=== PATIENT | female | born 1955 | race Caucasian/White ===

== ENCOUNTER → 2018-03-04 | Outpatient (CLI) | payer OTHER ==
[~2018-03-04] MED LIST: ACT300 PO; CETI10TA84 PO; DESO0.259 TOP; DILT120C68 PO; ERGO500037 PO; ESTR0.3T PO; FLUO40CA8 PO; HYOS1TAB PO; LEVO150T PO; LIDO2SOL17 PO; LISI5TAB3 PO; MULT-506 PO; PHEN1ELX5 PO; PRLSR20 PO; RANI150T85 PO; ZOLP5TAB PO
--- NOTE | 2018-03-05 14:43 | MAMMOGRAPHY REPORT ---
BILATERAL DIGITAL SCREENING MAMMOGRAM TOMOSYNTHESIS WITH CAD: 03/04/2018 CLINICAL HISTORY: Routine screening. Patient has no complaints. TECHNIQUE: The study was acquired using full field digital technology and interpreted from soft copy. Breast tomosynthesis in addition to standard 2D mammography was performed. Current study was also ev aluated with a Computer Aided Detection (CAD) system. COMPARISON: Comparison is made to exam dated: 09/17/2015 mammogram - [facility]. BREAST COMPOSITION: There are scattered areas of fibroglandular density in both breasts. FINDINGS: There are scattered stable calcifications in the breasts. Stable asymmetry in the lateral left breast. No new suspicious mass, architectural distortion or cluster of microcalcifications is se en. IMPRESSION: ACR BI-RADS CATEGORY 1: NEGATIVE There is no mammographic evidence of malignancy. A 1 year screening mammogram is recommended.( 019) The patient will receive written notification of the results. Some breast cancers are not detected with mammography. A negative mammographic report should not deborah y biopsy if a clinically suggestive mass is present. Ivanna Stewart M.D. ay/:03/04/2018 15:20:04 Linux Kernel Developer: RT Dinorah(Steven)(Mica), [facility] letter sent: Normal 1/2 BI-RADS Code: ACR BI-RADS Category 1: Negative
== END | disposition home or self-care (01) ==
LOC: C.MAMM 09:47
PROVIDERS: ATTEND Family Medicine
DX: Z12.31 Encounter for screening mammogram for malignant neoplasm of breast (principal); R92.1 Mammographic calcification found on diagnostic imaging of breast

== ENCOUNTER 2019-03-01 21:32 | Observation (INO) ==
[2019-03-01] MEDS ORDERED: SODIUM CHLORIDE 0.9% 1000ML 1,000 ML IV ONE ×2 (21:53→22:26)
[2019-03-01] MEDS ORDERED: PROCHLORPERAZINE 1 ML IV ONE (21:55)
--- NOTE | 2019-03-01 22:24 | XRay Report ---
XR chest 1V portable HISTORY: 63 years-old Female Chest Pain acute atypical chest pain COMPARISON: Chest radiograph 09/20/2018 TECHNIQUE: Portable AP view of the chest FINDINGS: Cardiomediastinal and hilar silhouettes are within normal limits. No pneumothorax, pleural effusion, focal airspace consolidation or overt pulmonary edema. Bones of the chest appear grossly intact. IMPRESSION: No acute process. The above report was generated using voice recognition software. It may contain grammatical, syntax o r spelling errors. Electronically signed by: Manan Kirk M.D. 03/01/2019 10:22 PM
[2019-03-01 22:28] LABS: Basophils # (auto) 0.03 K/uL (0-0.2); Basophils % (auto) 0.3 %; Eosinophils # (auto) 0.08 K/uL (0-0.5); Eosinophils % (auto) 0.8 %; Hematocrit (blood only) 38.3 % (37-47); Hemoglobin 13.1 g/dL (12.0-16.0); Immature Granulocytes # (auto) 0.02 K/uL (0.00-0.02); Immature Granulocytes % (auto) 0.2 %; Lymphocytes % (auto) 24.8 %; Mean Corpuscular Hgb Conc 34.2 g/dL (32-36); Mean Corpuscular Volume 85.3 fL (80-100); Mean Platelet Volume 11.3 fL (7.4-10.4); Monocytes # (auto) 0.65 K/uL (0.11-0.59); Monocytes % (auto) 6.2 %; Neutrophils # (auto) 7.12 K/uL (1.4-6.5); Neutrophils % (auto) 67.7 %; Platelet Count 303 K/uL (130-400); RDW Coefficient of Variation 14.1 % (11.5-14.5); RDW Standard Deviation 44.2 fL (36.4-46.3); Red Blood Count 4.49 M/uL (4.2-5.4)
[2019-03-01 22:45] LABS: Albumin Level 3.8 gm/dl (3.4-5.0); BUN Creatinine Ratio 14.8 (10-20); Calcium 8.8 mg/dl (8.5-10.1); Creatinine Clr Calc Pharmacy 69.6 ml/min; Est GFR (African American) 78.9; Magnesium 2.1 mg/dl (1.8-2.4); Potassium 3.8 mmol/L (3.5-5.1)
[2019-03-01 23:04] LABS: Albumin Globulin Ratio 1.1 (0.9-2); Bilirubin,Total 0.6 mg/dl (0.2-1); Globulin 3.5 gm/dl (2.5-4.0); Phosphorus 3.3 mg/dl (2.5-4.9); Total Protein 7.3 gm/dl (6.4-8.2); Troponin I 0.074 ng/ml (0-0.045)
[2019-03-02] MEDS ORDERED: ADENOSINE IV SOLN 3 MG/ML 2 ML VIAL IV ONE (00:59)
--- NOTE | 2019-03-02 01:16 | Emergency Department Note ---
Entered by Yudy Berman acting as a scribe for Shayne Tenorio MD History of Present Illness General Chief complaint: Tachycardia Stated complaint: RACING HEARTRATE,BACK PAIN,SWAETING,CHILLS Time Seen by Provider: 03/01/19 21:43 Source: patient History of Present Illness Provider complaint: Tachycardia Onset (ago): hour(s) 4 Pain Consistency: + constant Maximum Pain Intensity: 6 Quality: + constant Associated symptoms: + diaphoresis and + other (Positive: tachycardia, discomfort feeling, motion sickness like feeling, pulsating sensation, discomfort feeling across shoulder blades, numb cheeks) The patient is a 63 year old female who presents to the ED with complaints of constant tachycardia that started 4 hours ago. 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 She notes she has not had SVT in two weeks. The patient states she usually can control it within 15 minutes if she catches it right away. The patient reports she feels like her body is pulsating along with a discomfort feeling across her shoulder blades. She notes she is having motion sickness like feeling. She states her cheeks are numb. The patient reports she had a cup of coffee today and is dehydrated. She states she has diaphoresis. The patient denies history of heart attacks. Home Medications Home Medications Medication Instructions Recorded Confirmed Type cetirizine [Zyrtec] 10 mg PO HS 09/20/18 03/01/19 History diltiazem HCl [Cartia XT] 120 mg PO DAILY 09/20/18 03/01/19 History ergocalciferol (vitamin D2) 50,000 unit PO WK 09/20/18 03/01/19 History [Vitamin D2] fluocinonide 1 applic TOPICAL BID PRN 09/20/18 03/01/19 History fluoxetine [Prozac] 40 mg PO HS 09/20/18 03/01/19 History levothyroxine 150 mcg PO DAILY 09/20/18 03/01/19 History omeprazole 20 mg PO HS 09/20/18 03/01/19 History ursodiol 500 mg PO BID 09/20/18 03/01/19 History biotin 5,000 mcg SUBLINGUAL DAILY 03/01/19 03/01/19 History conjugated estrogens [Premarin] 0.625 mg PO DAILY 03/01/19 03/01/19 History Allergies Allergy/AdvReac Type Severity Reaction Status Date / Time morphine Allergy Severe GI SYMPTOMS Verified 03/01/19 22:18 tobramycin Allergy Intermediate WORSENS Verified 03/01/19 22:18 EYE CONDITION AND SWELLING Penicillins Allergy Mild PURPLE Verified 03/01/19 22:18 SKIN AT HIGH DOSES Sulfa (Sulfonamide Allergy Mild PEREPHERIAL Verified 03/01/19 22:18 Antibiotics) SWELLING nitrofurantoin Allergy Unknown CAN'T Verified 03/01/19 22:18 REMEMBER Past Med/Surg History Medical History Autoimmune hepatitis (Chronic 02/11/13) Corneal abrasion (Acute) Hypertension SVT (supraventricular tachycardia) Family History Other No pertinent family history in first degree relatives Social History Preferred Language: Polish Feels Safe at Home: Yes Smoking Status: Former smoker Review of Systems See HPI for pertinent positives & negatives. and A total of 10 systems reviewed and were otherwise negative Physical Exam Vital Signs Vital Signs - 24 hr 03/01/19 21:32 03/01/19 21:34 03/01/19 21:41 Temperature 36.8 C Temperature Source Oral Sepsis Recent Fever Within 48 Hours No Sepsis New/Unexplained Change in Mental Status No Sepsis Action Taken by Nursing No Action Required Pulse Rate 130 H 129 H Pulse Rate [Right Finger] Pulse Rate from SpO2 Sensor 129 H Respiratory Rate 16 25 H Respiratory Effort / Characteristics Respiratory Depth Respiratory Pattern Blood Pressure 157/99 H 133/94 Blood Pressure [Left Arm] Blood Pressure Mean 118 107 Blood Pressure Mean [Left Arm] Blood Pressure Position [Left Arm] Pulse Oximetry 94 95 96 Oxygen Delivery Method Room Air Room Air 03/01/19 21:47 03/01/19 21:53 03/01/19 22:00 Temperature Temperature Source Sepsis Recent Fever Within 48 Hours Sepsis New/Unexplained Change in Mental Status Sepsis Action Taken by Nursing Pulse Rate 128 H 124 H Pulse Rate [Right Finger] Pulse Rate from SpO2 Sensor 127 H 125 H Respiratory Rate 18 19 Respiratory Effort / Characteristics Respiratory Depth Respiratory Pattern Blood Pressure Blood Pressure [Left Arm] Blood Pressure Mean Blood Pressure Mean [Left Arm] Blood Pressure Position [Left Arm] Pulse Oximetry 96 96 Oxygen Delivery Method Room Air 03/01/19 22:15 03/01/19 22:18 03/01/19 22:30 Temperature Temperature Source Sepsis Recent Fever Within 48 Hours Sepsis New/Unexplained Change in Mental Status Sepsis Action Taken by Nursing Pulse Rate 123 H 120 H 118 H Pulse Rate [Right Finger] Pulse Rate from SpO2 Sensor 123 H 121 H 118 H Respiratory Rate 17 26 H 14 Respiratory Effort / Characteristics Respiratory Depth Respiratory Pattern Blood Pressure 117/78 119/78 Blood Pressure [Left Arm] Blood Pressure Mean 91 91 Blood Pressure Mean [Left Arm] Blood Pressure Position [Left Arm] Pulse Oximetry 94 96 94 Oxygen Delivery Method 03/01/19 22:45 03/01/19 23:00 03/01/19 23:15 Temperature Temperature Source Sepsis Recent Fever Within 48 Hours Sepsis New/Unexplained Change in Mental Status Sepsis Action Taken by Nursing Pulse Rate 119 H 119 H 120 H Pulse Rate [Right Finger] Pulse Rate from SpO2 Sensor 119 H 119 H 120 H Respiratory Rate 14 18 15 Respiratory Effort / Characteristics Respiratory Depth Respiratory Pattern Blood Pressure 113/74 102/74 100/77 Blood Pressure [Left Arm] Blood Pressure Mean 87 83 84 Blood Pressure Mean [Left Arm] Blood Pressure Position [Left Arm] Pulse Oximetry 96 96 94 Oxygen Delivery Method 03/01/19 23:29 03/01/19 23:45 03/02/19 00:00 Temperature Temperature Source Sepsis Recent Fever Within 48 Hours Sepsis New/Unexplained Change in Mental Status Sepsis Action Taken by Nursing Pulse Rate 120 H 120 H 121 H Pulse Rate [Right Finger] 120 H Pulse Rate from SpO2 Sensor 120 H 120 H 121 H Respiratory Rate 17 18 15 Respiratory Effort / Characteristics Non-Labored Spontaneous Respiratory Depth Normal Respiratory Pattern Regular Blood Pressure 104/76 101/71 141/92 H Blood Pressure [Left Arm] 104/76 Blood Pressure Mean 85 81 108 Blood Pressure Mean [Left Arm] 85 Blood Pressure Position [Left Arm] Lying Pulse Oximetry 94 95 96 Oxygen Delivery Method Room Air 03/02/19 00:15 03/02/19 00:45 03/02/19 01:00 Temperature Temperature Source Sepsis Recent Fever Within 48 Hours Sepsis New/Unexplained Change in Mental Status Sepsis Action Taken by Nursing Pulse Rate 122 H 123 H 126 H Pulse Rate [Right Finger] Pulse Rate from SpO2 Sensor 122 H 123 H 126 H Respiratory Rate 15 16 25 H Respiratory Effort / Characteristics Respiratory Depth Respiratory Pattern Blood Pressure 126/80 122/81 142/87 H Blood Pressure [Left Arm] Blood Pressure Mean 95 94 105 Blood Pressure Mean [Left Arm] Blood Pressure Position [Left Arm] Pulse Oximetry 95 95 96 Oxygen Delivery Method 03/02/19 01:09 03/02/19 01:15 03/02/19 01:30 Temperature Temperature Source Sepsis Recent Fever Within 48 Hours Sepsis New/Unexplained Change in Mental Status Sepsis Action Taken by Nursing Pulse Rate 71 72 Pulse Rate [Right Finger] 73 Pulse Rate from SpO2 Sensor 72 72 Respiratory Rate 18 20 20 Respiratory Effort / Characteristics Non-Labored Spontaneous Respiratory Depth Normal Respiratory Pattern Regular Blood Pressure 136/71 146/73 H Blood Pressure [Left Arm] 142/87 H Blood Pressure Mean 92 97 Blood Pressure Mean [Left Arm] 105 Blood Pressure Position [Left Arm] Lying Pulse Oximetry 95 94 97 Oxygen Delivery Method Room Air 03/02/19 01:45 03/02/19 02:02 03/02/19 02:28 Temperature Temperature Source Sepsis Recent Fever Within 48 Hours Sepsis New/Unexplained Change in Mental Status Sepsis Action Taken by Nursing Pulse Rate 66 72 72 Pulse Rate [Right Finger] Pulse Rate from SpO2 Sensor 65 73 Respiratory Rate 17 18 18 Respiratory Effort / Characteristics Respiratory Depth Respiratory Pattern Blood Pressure 128/79 120/62 127/65 Blood Pressure [Left Arm] Blood Pressure Mean 95 81 85 Blood Pressure Mean [Left Arm] Blood Pressure Position [Left Arm] Pulse Oximetry 94 95 Oxygen Delivery Method 03/02/19 02:45 03/02/19 03:00 03/02/19 03:15 Temperature Temperature Source Sepsis Recent Fever Within 48 Hours Sepsis New/Unexplained Change in Mental Status Sepsis Action Taken by Nursing Pulse Rate 62 64 58 L Pulse Rate [Right Finger] Pulse Rate from SpO2 Sensor 62 65 57 L Respiratory Rate 17 17 17 Respiratory Effort / Characteristics Respiratory Depth Respiratory Pattern Blood Pressure 117/62 117/71 Blood Pressure [Left Arm] Blood Pressure Mean 80 86 Blood Pressure Mean [Left Arm] Blood Pressure Position [Left Arm] Pulse Oximetry 94 97 94 Oxygen Delivery Method GENERAL: Awake, alert, fatigued and uncomfortable appearing, in no distress HENT: Normocephalic, atraumatic. Oropharynx with dry mucous membranes and otherwise unremarkable. EYES: Normal conjunctiva. Sclera non-icteric. NECK: Supple. No nuchal rigidity. FROM. No JVD. RESPIRATORY: CTAB CARDIAC: Tachycardic rate, normal rhythm. Extremities warm and well perfused. Pulses equal. ABDOMEN: Soft, non-distended. No tenderness to palpation. No rebound or guarding. No masses. RECTAL: Deferred. MUSCULOSKELETAL: Chest examination reveals no tenderness. The back is symmetrical on inspection without obvious abnormality. There is no CVA tenderness to palpation. No joint edema. LOWER EXTREMITIES: Calves are equal size bilaterally and non-tender. No edema. No discoloration. NEURO: Normal sensorium. No sensory or motor deficits noted. SKIN: No rash or jaundice noted. Course 2144: The patient was evaluated in room B2. A complete history and physical exam was performed. 2226: The patient's heart rate is down to 120 beats per minute. 2349: I checked on the patient. Administered Medications Diltiazem HCl (Cardizem Cd) 120 mg PO DAILY NADINE Stop: 04/01/19 03:14 Last Admin: 03/02/19 03:18 Dose: Not Given Documented by: [id number] Ioversol (Optiray 320 125ml) 119 ml IV ONCE PRN PRN Reason: Interaction Checking Stop: 03/06/19 02:32 Last Admin: 03/02/19 02:34 Dose: 1 ml Documented by: [id number] Discontinued Medications Adenosine (Adenosine) Confirm Administered Dose 18 mg IV .STK-MED ONE Stop: 03/02/19 01:00 Last Admin: 03/02/19 01:08 Dose: 6 mg Documented by: [id number] Prochlorperazine (Compazine) 1 mls @ 1 mls/min IV ONE ONE Stop: 03/01/19 21:56 Last Admin: 03/01/19 22:10 Dose: 1 mls/min Documented by: [id number] Sodium Chloride (Nss 1000ml) 1,000 mls @ 999 mls/hr IV .Q1H1M ONE Stop: 03/01/19 22:53 Last Infusion: 03/01/19 23:33 Dose: 0 mls/hr Documented by: [id number] Admin: 03/01/19 22:08 Dose: 999 mls/hr Documented by: [id number] Sodium Chloride (Nss 1000ml) 1,000 mls @ 999 mls/hr IV .Q1H1M ONE Stop: 03/01/19 23:26 Last Infusion: 03/02/19 00:56 Dose: 0 mls/hr Documented by: [id number] Admin: 03/01/19 23:32 Dose: 999 mls/hr Documented by: [id number] Potassium Chloride (Klor-Con M20) 40 meq PO NOW STA Stop: 03/02/19 01:40 Last Admin: 03/02/19 02:02 Dose: 40 meq Documented by: [id number] Medical Decision Making Differential Diagnosis Differential diagnosis: Etiologies such as premature contractions, electrolyte abnormality, cardiac dysrhythmia, thyroid dysfunction, pulmonary embolism, infection, gastrointestinal, as well as others were entertained. Medical Records Attestation: I reviewed the patient's medical records. Home Medications Current Medication List: was personally reviewed by me Laboratory Data Attestation: I reviewed the patient's lab results. Result diagrams: 03/01/19 21:58 03/01/19 21:58 Lab Results 03/01/19 03/01/19 Range/Units 21:58 21:58 WBC 10.50 (4.8-10.8) K/uL RBC 4.49 (4.2-5.4) M/uL Hgb 13.1 (12.0-16.0) g/dL Hct 38.3 (37-47) % MCV 85.3 (80-100) fL MCH 29.2 (25-34) pg MCHC 34.2 (32-36) g/dL RDW Std Deviation 44.2 (36.4-46.3) fL RDW Coeff of Keri 14.1 (11.5-14.5) % Plt Count 303 (130-400) K/uL MPV 11.3 H (7.4-10.4) fL Immature Gran % (Auto) 0.2 % Neut % (Auto) 67.7 % Lymph % (Auto) 24.8 % [place] % (Auto) 6.2 % Eos % (Auto) 0.8 % Baso % (Auto) 0.3 % Immature Gran # (Auto) 0.02 (0.00-0.02) K/uL Neut # (Auto) 7.12 H (1.4-6.5) K/uL Lymph # (Auto) 2.60 (1.2-3.4) K/uL [place] # (Auto) 0.65 H (0.11-0.59) K/uL Eos # (Auto) 0.08 (0-0.5) K/uL Baso # (Auto) 0.03 (0-0.2) K/uL Sodium 141 (136-145) mmol/L Potassium 3.8 (3.5-5.1) mmol/L Chloride 110 H (98-107) mmol/L Carbon Dioxide 23 (21-32) mmol/L Anion Gap 7.0 (3-11) BUN 13 (7-18) mg/dl Creatinine 0.90 (0.6-1.2) mg/dl Est Cr Clr Drug Dosing 69.6 ml/min Est GFR ( Amer) 78.9 Est GFR (Non-Af Amer) 68.0 BUN/Creatinine Ratio 14.8 (10-20) Glucose 96 (70-99) mg/dl Calcium 8.8 (8.5-10.1) mg/dl Phosphorus 3.3 (2.5-4.9) mg/dl Magnesium 2.1 (1.8-2.4) mg/dl Total Bilirubin 0.6 (0.2-1) mg/dl AST 17 (15-37) U/L ALT 21 (12-78) U/L Alkaline Phosphatase 109 (45-117) U/L Troponin I 0.074 H* (0-0.045) ng/ml Total Protein 7.3 (6.4-8.2) gm/dl Albumin 3.8 (3.4-5.0) gm/dl Globulin 3.5 (2.5-4.0) gm/dl Albumin/Globulin Ratio 1.1 (0.9-2) Lipase 126 (73-393) U/L TSH 1.760 (0.300-4.500) uIu/ml Imaging Data Radiologist's Impression: Radiology results as stated below per my review and the radiologist's interpretation: XR chest 1V portable HISTORY: 63 years-old Female Chest Pain acute atypical chest pain COMPARISON: Chest radiograph 09/20/2018 TECHNIQUE: Portable AP view of the chest FINDINGS: Cardiomediastinal and hilar silhouettes are within normal limits. No pneumothorax, pleural effusion, focal airspace consolidation or overt pulmonary edema. Bones of the chest appear grossly intact. IMPRESSION: No acute process. The above report was generated using voice recognition software. It may contain grammatical, syntax or spelling errors. Electronically signed by: Manan Kirk M.D. 03/01/2019 10:22 PM ECG Data Attestation: I personally reviewed and interpreted this ECG as follows: Indication: palpitations Rate (beats per minute): 127 Rhythm: sinus tachycardia Findings: + other (Normal axis and intervals ); no acute ischemic change Blood Pressure Blood Pressure Findings: Normal blood pressure Blood Pressure Disposition: did not require urgent referral MDM Narrative The patient is a pleasant 63-year-old woman with a past medical history of SVT on diltiazem, HTN, HLD, anxiety/depression, GERD, hypothyroidism who presents emergency department with symptoms of palpitations, chest pain which occurred today when she was at her daughter's wedding per hpi. 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 On arrival the patient is uncomfortable but no acute distress, afebrile with heart rate in the 130s and vital signs otherwise stable. Initial EKG with a heart rate of 127 but does have visible P waves though in close proximity of preceding T wave. Patient was given IV fluid hydration with subsequent improvement in her heart rate to 120. However, [id number] at bedside noting no further improvement. Repeat EKG appeared similar to the first. Prior EKGs were reviewed and she did have a EKG that was similar in 2010 with HR 120s that was interpreted as SVT. Therefore after further discussion with the patient and her [id number] we did agree to proceed with trial of adenosine which was given with subsequent cardioversion to sinus rhythm in the 80s with baseline incomplete RBBB. She reported feeling improvement. However patient did have a mildly elevated troponin of 0.07 in the setting of her report of chest pain that radiated to her shoulders. While troponin elevation certainly could have been related to prolonged SVT it is reasonable to admit the patient for cardiac of evaluation. Heart score 4 moderate risk. Labs otherwise unremarkable. WBC, H/H, platelets wnl. Chemistry without acidosis. LFTs and electrolytes unremarkable. Case was discussed with Dr. Avery, [facility] hospitalist, who will evaluate the patient for admission. Impression & Plan Paroxysmal supraventricular tachycardia, Elevated troponin, Substernal chest pain Critical Care Time Critical Care Time: Yes Total Critical Care Time: 45 I have personally spent greater than 45 minutes of critical care time in the direct management of this patient. This includes bedside care, interpretation of diagnostic studies, and testing, discussion with consultants, patient, and family members, and other required patient management activities. This 45 minutes is in excess of all separately billable procedures. Discharge Plan Visit Data Chief Complaint: Tachycardia Stated Complaint: RACING HEARTRATE,BACK PAIN,SWAETING,CHILLS ED Provider: Shayne Tenorio Discharge Problem: Paroxysmal supraventricular tachycardia, Elevated troponin, Substernal chest pain Forms Stand Alone Forms: My [facility] Prescriptions Prescriptions: No Action fluoxetine [Prozac] 40 mg Capsule 40 mg PO HS RF: 0 cetirizine [Zyrtec] 10 mg Tablet 10 mg PO HS RF: 0 levothyroxine 150 mcg Tablet 150 mcg PO DAILY RF: 0 omeprazole 20 mg Capsule,Delayed Release(Dr/Ec) 20 mg PO HS RF: 0 diltiazem HCl [Cartia XT] 120 mg Capsule,Extended Release 24hr 120 mg PO DAILY RF: 0 ergocalciferol (vitamin D2) [Vitamin D2] 50,000 unit Capsule 50,000 unit PO WK RF: 0 fluocinonide 0.05 % Cream 1 applic TOPICAL BID PRN (Reason: Skin Irritation) RF: 0 ursodiol 500 mg Tablet 500 mg PO BID RF: 0 Premarin 0.625 mg Tablet 0.625 mg PO DAILY RF: 0 biotin 5,000 mcg Tablet, Sublingual 5,000 mcg SUBLINGUAL DAILY RF: 0 The scribe's documentation has been prepared under my direction and personally reviewed by me in its entirety. I confirm that the note above accurately reflects all work, treatment, procedures, and medical decision making performed by me.
[2019-03-02] MEDS ORDERED: POTASSIUM CHLORIDE 20 MEQ TABCR PO STA (01:39)
[2019-03-02] MEDS ORDERED: OPTIRAY 320 125ml IV PRN (02:33)
--- NOTE | 2019-03-02 03:10 | History & Physical Report ---
Date of Service March 02, 2019 Assessment & Plan (1) Palpitations: Likely secondary to SVT attack Sinus tachycardia however noted on ER telemetry /EKG. SVT possibly mitigated by out of hospital Propanolol administration prior to arrival at the emergency room. Tachycardic episode likely precipitated by personal stress from family event. Troponin elevation secondary to above hypertension, slightly elevated upon arrival at the ER mood disorder/anxiety disorder, at baseline, home meds helping as per patient primary biliary cirrhosis as per records, stable on ursodiol Rx past tobacco abuse. OBS PCU Continue oral Cardizem for SVT prophylaxis Trend troponin TTE RE troponin elevation Cardiology consult RE palpitations Anxiolytic as needed DVT prophylaxis. Lovenox subcu Full code History of Present Illness Chief Complaint: Palpitations Primary Care Provider: Dudley Forrester MD History obtained from patient and records. Medical history significant for hypertension, hyperlipidemia, SVT, mood disorder, primary biliary cirrhosis as per records, past tobacco abuse. Patient noted palpitations last night reminiscent of SVT attack associated with pain between her shoulder blades. No actual chest pain, no S OB. Legs more swollen than usual yesterday which patient attributed to prolonged standing. Patient had a busy day yesterday due to her daughter's wedding. Was able to take morning Cardizem pill. Less than usual caffeine intake yesterday. Patient did not get a lot of sleep the night before due to wedding preparations. Usual SVT frequency about twice a month usually terminated by vagal maneuvers at home. 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 Patient was given Propanolol by her [id number]-evl who happens to be an Emergency Medicine specialist. Patient later on felt sweaty. At the ER, patient noted to be tachycardic, cardiac rate 120-130s. Tachycardia resolved following IVF and adenosine administration. Patient currently comfortable. 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 Allergies Allergy/AdvReac Type Severity Reaction Status Date / Time morphine Allergy Severe GI SYMPTOMS Verified 03/01/19 22:18 tobramycin Allergy Intermediate WORSENS Verified 03/01/19 22:18 EYE CONDITION AND SWELLING Penicillins Allergy Mild PURPLE Verified 03/01/19 22:18 SKIN AT HIGH DOSES Sulfa (Sulfonamide Allergy Mild PEREPHERIAL Verified 03/01/19 22:18 Antibiotics) SWELLING nitrofurantoin Allergy Unknown CAN'T Verified 03/01/19 22:18 REMEMBER Home Medications Home Medications Medication Instructions Recorded Confirmed Type cetirizine [Zyrtec] 10 mg PO HS 09/20/18 03/01/19 History diltiazem HCl [Cartia XT] 120 mg PO DAILY 09/20/18 03/01/19 History ergocalciferol (vitamin D2) 50,000 unit PO WK 09/20/18 03/01/19 History [Vitamin D2] fluocinonide 1 applic TOPICAL BID PRN 09/20/18 03/01/19 History fluoxetine [Prozac] 40 mg PO HS 09/20/18 03/01/19 History levothyroxine 150 mcg PO DAILY 09/20/18 03/01/19 History omeprazole 20 mg PO HS 09/20/18 03/01/19 History ursodiol 500 mg PO BID 09/20/18 03/01/19 History biotin 5,000 mcg SUBLINGUAL DAILY 03/01/19 03/01/19 History conjugated estrogens [Premarin] 0.625 mg PO DAILY 03/01/19 03/01/19 History Past Med/Surg History Medical History Autoimmune hepatitis (Chronic 02/11/13) Corneal abrasion (Acute) Hypertension SVT (supraventricular tachycardia) Family History Other No pertinent family history in first degree relatives Social History Preferred Language: Micronesian Communication Ability: Effective Beliefs That Will Affect Care: None Current Living Situation: Spouse Feels Safe at Home: Yes Safety Concerns: Feels Safe At This Time Smoking Status: Former smoker Smoking End Date: 1998 ; Hx Alcohol Use: Yes Alcohol type: wine Hx Substance Use: No Review of Systems Review of Systems: As per HPI, all 10 systems reviewed, all other ROS negative Physical Exam Physical Exam: GENERAL: Comfortable, obese, looks younger for stated age, no respiratory distress SKIN: Normal color, warm HEENT: [place] palpebral conjunctivae, no ptosis, dry buccal mucosa NECK : Supple, short neck, no tenderness CHEST : CTA, no tenderness HEART : RRR, no obvious murmurs ABDOMEN: Some distention, nontender EXTREMITIES : Minimal LE swelling, no LE tenderness, no other conspicuous deformities noted NEUROLOGIC : Coherent, no facial asymmetry, no other gross focality Results & Data Vital Signs (Past 12 Hours) Vital Signs Temp Pulse Pulse Resp BP BP Pulse Ox 03/02/19 02:28 72 18 127/65 95 03/02/19 02:02 72 18 120/62 03/02/19 01:45 66 17 128/79 94 03/02/19 01:30 72 20 146/73 H 97 03/02/19 01:15 71 20 136/71 94 03/02/19 01:09 73 18 142/87 H 95 03/02/19 01:00 126 H 25 H 142/87 H 96 03/02/19 00:45 123 H 16 122/81 95 03/02/19 00:15 122 H 15 126/80 95 03/02/19 00:00 121 H 15 141/92 H 96 03/01/19 23:45 120 H 18 101/71 95 03/01/19 23:29 120 H 120 H 17 104/76 104/76 94 03/01/19 23:15 120 H 15 100/77 94 03/01/19 23:00 119 H 18 102/74 96 03/01/19 22:45 119 H 14 113/74 96 03/01/19 22:30 118 H 14 119/78 94 03/01/19 22:18 120 H 26 H 117/78 96 03/01/19 22:15 123 H 17 94 03/01/19 22:00 124 H 19 96 03/01/19 21:47 128 H 18 96 03/01/19 21:41 129 H 25 H 133/94 96 03/01/19 21:34 36.8 C 130 H 16 157/99 H 95 03/01/19 21:32 94 Laboratory Results Laboratory Results WBC 10.50 K/uL (4.8-10.8) 03/01/19 21:58 RBC 4.49 M/uL (4.2-5.4) 03/01/19 21:58 Hgb 13.1 g/dL (12.0-16.0) 03/01/19 21:58 Hct 38.3 % (37-47) 03/01/19 21:58 MCV 85.3 fL (80-100) 03/01/19 21:58 MCH 29.2 pg (25-34) 03/01/19 21:58 MCHC 34.2 g/dL (32-36) 03/01/19 21:58 RDW Std Deviation 44.2 fL (36.4-46.3) 03/01/19 21:58 RDW Coeff of Keri 14.1 % (11.5-14.5) 03/01/19 21:58 Plt Count 303 K/uL (130-400) 03/01/19 21:58 MPV 11.3 fL (7.4-10.4) H 03/01/19 21:58 Immature Gran % (Auto) 0.2 % 03/01/19 21:58 Neut % (Auto) 67.7 % 03/01/19 21:58 Lymph % (Auto) 24.8 % 03/01/19 21:58 [place] % (Auto) 6.2 % 03/01/19 21:58 Eos % (Auto) 0.8 % 03/01/19 21:58 Baso % (Auto) 0.3 % 03/01/19 21:58 Immature Gran # (Auto) 0.02 K/uL (0.00-0.02) 03/01/19 21:58 Neut # (Auto) 7.12 K/uL (1.4-6.5) H 03/01/19 21:58 Lymph # (Auto) 2.60 K/uL (1.2-3.4) 03/01/19 21:58 Gooding # (Auto) 0.65 K/uL (0.11-0.59) H 03/01/19 21:58 Eos # (Auto) 0.08 K/uL (0-0.5) 03/01/19 21:58 Baso # (Auto) 0.03 K/uL (0-0.2) 03/01/19 21:58 Sodium 141 mmol/L (136-145) 03/01/19 21:58 Potassium 3.8 mmol/L (3.5-5.1) 03/01/19 21:58 Chloride 110 mmol/L (98-107) H 03/01/19 21:58 Carbon Dioxide 23 mmol/L (21-32) 03/01/19 21:58 Anion Gap 7.0 (3-11) 03/01/19 21:58 BUN 13 mg/dl (7-18) 03/01/19 21:58 Creatinine 0.90 mg/dl (0.6-1.2) 03/01/19 21:58 Est Cr Clr Drug Dosing 69.6 ml/min 03/01/19 21:58 Est GFR ( Amer) 78.9 03/01/19 21:58 Est GFR (Non-Af Amer) 68.0 03/01/19 21:58 BUN/Creatinine Ratio 14.8 (10-20) 03/01/19 21:58 Glucose 96 mg/dl (70-99) 03/01/19 21:58 Calcium 8.8 mg/dl (8.5-10.1) 03/01/19 21:58 Phosphorus 3.3 mg/dl (2.5-4.9) 03/01/19 21:58 Magnesium 2.1 mg/dl (1.8-2.4) 03/01/19 21:58 Total Bilirubin 0.6 mg/dl (0.2-1) 03/01/19 21:58 AST 17 U/L (15-37) 03/01/19 21:58 ALT 21 U/L (12-78) 03/01/19 21:58 Alkaline Phosphatase 109 U/L (45-117) 03/01/19 21:58 Troponin I 0.074 ng/ml (0-0.045) H* 03/01/19 21:58 Total Protein 7.3 gm/dl (6.4-8.2) 03/01/19 21:58 Albumin 3.8 gm/dl (3.4-5.0) 03/01/19 21:58 Globulin 3.5 gm/dl (2.5-4.0) 03/01/19 21:58 Albumin/Globulin Ratio 1.1 (0.9-2) 03/01/19 21:58 Lipase 126 U/L (73-393) 03/01/19 21:58 TSH 1.760 uIu/ml (0.300-4.500) 03/01/19 21:[address] chest initial read: No aortic dissection. No PE. Peribronchial thickening. EKG as per my interpretation rate 120, sinus tachycardia, normal axis, incomplete right bundle branch block, no ischemia
[2019-03-02] MEDS ORDERED: dilTIAZem HCL 120 MG CAPCR PO SCH ×2 (03:15→09:00)
[2019-03-02] MEDS ORDERED: TRAMADOL HCL 50 MG TABLET PO PRN (04:13)
[2019-03-02] MEDS ORDERED: LORazepam 0.25 MG/0.5 ML VIAL IV PRN (04:13)
[2019-03-02] MEDS ORDERED: ACETAMINOPHEN 325 MG TAB PO PRN (04:13)
[2019-03-02] MEDS ORDERED: NITROGLYCERIN SL 0.4 MG/TAB TAB SL PRN (04:13)
[2019-03-02] MEDS ORDERED: PROMETHAZINE HCL 12.5 MG in SODIUM CHLORIDE 0.9% 50 ML IV PRN (04:13)
[2019-03-02] MEDS ORDERED: LACTATED RINGER'S 1,000 ML IV ONE (04:30)
[2019-03-02 05:49] LABS: Basophils # (auto) 0.03 K/uL (0-0.2); Basophils % (auto) 0.4 %; Eosinophils # (auto) 0.13 K/uL (0-0.5); Eosinophils % (auto) 1.7 %; Hematocrit (blood only) 33.6 % (37-47); Hemoglobin 11.3 g/dL (12.0-16.0); Immature Granulocytes # (auto) 0.01 K/uL (0.00-0.02); Immature Granulocytes % (auto) 0.1 %; Lymphocytes # (auto) 2.41 K/uL (1.2-3.4); Lymphocytes % (auto) 31.1 %; Mean Corpuscular Hgb Conc 33.6 g/dL (32-36); Mean Corpuscular Volume 87.5 fL (80-100); Mean Platelet Volume 10.9 fL (7.4-10.4); Monocytes # (auto) 0.64 K/uL (0.11-0.59); Monocytes % (auto) 8.2 %; Neutrophils # (auto) 4.54 K/uL (1.4-6.5); Neutrophils % (auto) 58.5 %; Platelet Count 255 K/uL (130-400); RDW Coefficient of Variation 14.3 % (11.5-14.5); RDW Standard Deviation 45.8 fL (36.4-46.3); Red Blood Count 3.84 M/uL (4.2-5.4); White Blood Count 7.76 K/uL (4.8-10.8)
[2019-03-02 06:01] LABS: Partial Thromboplastin Time 26.7 Seconds (21.0-31.0); Prothrombin Time 10.3 Seconds (9.0-12.0)
[2019-03-02 06:15] LABS: BUN Creatinine Ratio 19.4 (10-20); Calcium 7.9 mg/dl (8.5-10.1); Creatinine Clr Calc Pharmacy 86.1 ml/min; Est GFR (African American) 101.6; Est GFR (Non-African American) 87.7; Potassium 4.5 mmol/L (3.5-5.1)
[2019-03-02 06:23] LABS: Troponin I 0.128 ng/ml (0-0.045)
[2019-03-02] MEDS ORDERED: LEVOTHYROXINE SODIUM 150 MCG TABLET PO SCH (06:30)
[2019-03-02] MEDS ORDERED: ASPIRIN 81 MG ECTAB PO SCH (09:00)
[2019-03-02] MEDS ORDERED: URSODIOL 300 MG CAP PO SCH (09:00)
[2019-03-02] MEDS ORDERED: ENOXAPARIN INJ 40 MG/0.4 ML SYR SQ SCH (09:00)
--- NOTE | 2019-03-02 09:24 | CT Scan Report ---
CT angio chest dissec wo/w con HISTORY: 63 years-old Female chest/shoulder blade pain acute chest and back pain with concern for ac yancy aortic injury COMPARISON: Chest radiograph 03/01/2019 TECHNIQUE: CTA of the chest was obtained both with and without the use of 119 mL Optiray 320 IV contr ast. 3-D coronal and sagittal MIPS were obtained from the axial data set and were submitted for revie w. All measurements were obtained according to NASCET criteria. A dose lowering technique was used co nsistent with the principals suzanne RICCI. FINDINGS: CTA: The heart is upper limits of normal in size without pericardial effusion. No thoracic aortic aneurysm or dissection. Mild prominence at the ductus bump suggestive of a small developmental diverticulum. There is patency of the imaged great vessels. The noncontrast study demonstrates no intramural hemato ma. No mediastinal hematoma. The pulmonary arterial tree is opacified to the level of the subsegmenta l branches and demonstrates no focal filling defects to suggest pulmonary thromboembolic disease. CT CHEST: Mildly atrophic thyroid. No adenopathy by CT size criteria. There is no pneumothorax or pleural effus ion. No overt pulmonary edema or focal airspace consolidation typical for pneumonia. Mild bilateral b ronchial wall thickening. No suspicious pulmonary nodules or masses identified. 2 mm solid nodule of the lingula on image 120 series 7 is noted, likely benign. Pleural-based 2 mm solid nodule of the lef t lower lobe on image 196 series 7 is also likely benign. Central airways appear to be patent. There are at least 7 arterial enhancing lesions about the liver which demonstrate peripheral disconti nuous nodular enhancement measuring up to 3.1 cm within the right hepatic lobe suggestive of probable hepatic hemangiomata. No acute process of the imaged upper abdomen. The breast parenchyma and soft t issues appear unremarkable. Degenerative changes of the shoulders and spine. No acute fracture identi fied. IMPRESSION: 1. No acute aortic pathology or evidence of pulmonary thromboembolic disease. 2. 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 3. Bilateral bronchial wall thickening suggests bronchitis or reactive airway disease. 4. No adenopathy, pleural effusion or focal airspace consolidation typical for pneumonia. 5. Multiple enhancing lesions of the liver suggestive of probable hepatic hemangiomata. The above report was generated using voice recognition software. It may contain grammatical, syntax o r spelling errors. Electronically signed by: Manan Kirk M.D. 03/02/2019 9:23 AM
[2019-03-02] MEDS ORDERED: METOPROLOL TARTRATE 25 MG TAB PO SCH (09:30)
--- NOTE | 2019-03-02 09:48 | Cardiology Consultation ---
Date of Consultation March 02, 2019 Assessment & Plan (1) Atrial tachycardia: (2) Palpitations: (3) Substernal chest pain: (4) Elevated troponin: 63-year-old female admitted with palpitations and paroxysmal supraventricular tachycardia. Treated with intravenous adenosine in the ER with change in heart rate/rhythm to 120 bpm. 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 She then subsequently spontaneously converted to sinus rhythm on telemetry. Previously documented beta-esthela intolerance however she is unaware of specific side effects. Agreeable to rechallenge with metoprolol at this time. I will order 25 mg twice daily. Recommend electrophysiology consultation during hospitalization, however, patient declines at this time. Mildly elevated troponin secondary to prolonged episode of PSVT with heart rate reported as high as 160- 180 bpm for more than 2 hours. Recommend continued observation on telemetry to assess efficacy of additional beta-esthela therapy, however, patient is adamant that she needs to be discharged to take care of her . Encouraged to maintain adequate hydration and electrolyte replacement while avoiding excessive caffeine and/or alcohol intake. Appropriate use of Valsalva maneuvers reviewed. I will arrange for close cardiology follow-up in 1 week. Outpatient electrophysiology consultation can be arranged during that visit. Thank you for allowing me to participate in the care of your patient. Patient agreeable to return to the hospital with any recurrent symptoms. History of Present Illness Reason for Consultation: PSVT, palpitations Requesting Physician: Dr. Rodríguez Attending Physician: Dudley Rodríguez MD History of Present Illness 63-year-old female presented to the emergency department with palpitations, chest discomfort, and interscapular discomfort. Patient was attending her daughter's wedding. She noted onset of acute palpitations. Typically when she experiences episodes of palpitations consistent with history of PSVT, she will lie down and perform Valsalva maneuvers which tend to control her symptoms. Unfortunately, at the wedding there was no more for her to sit and rest. The symptoms gradually worsened. Family members and ER physician in [place] who helped treat the patient. She was given a dose of her daughter's propranolol which improved symptoms. She was treated with adenosine in the ER however there is no documentation of efficacy. ECGs on presentation reveal narrow complex tachycardia likely atrial tachycardia with a heart rate of approximately 121 bpm. Rhythm is not sinus on presentation. She converted to sinus rhythm overnight however suffered a brief recurrence of paroxysmal supraventricular tachycardia earlier this morning lasting less than 30 minutes. Currently the patient is resting comfortably. Denies any chest pain or unusual shortness of breath. No significant ST changes during periods of SVT. Denies prior history of coronary disease, congestive heart failure, rheumatic fever as a child, or diabetes. Carries a history of PSVT, sinus tachycardia, ventricular ectopy, anxiety/depression, hypertension, dyslipidemia, GERD, hypothyroidism, migraine headache, and obesity. 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 Patient reports significant social issues due to her 's illness. He suffers from Sebastian's chorea. She has declined electrophysiology evaluation and ablation in the past due to time constraint. She also works full-time. She is requesting discharge currently to take care of her who is currently in a hotel after her daughter's wedding yesterday. States she needs to get him home and get him back on schedule or his care will become quite difficult. She is agreeable to close cardiology follow-up after discharge. Allergies Allergy/AdvReac Type Severity Reaction Status Date / Time morphine Allergy Severe GI SYMPTOMS Verified 03/01/19 22:18 tobramycin Allergy Intermediate WORSENS Verified 03/01/19 22:18 EYE CONDITION AND SWELLING Penicillins Allergy Mild PURPLE Verified 03/01/19 22:18 SKIN AT HIGH DOSES Sulfa (Sulfonamide Allergy Mild PEREPHERIAL Verified 03/01/19 22:18 Antibiotics) SWELLING nitrofurantoin Allergy Unknown CAN'T Verified 03/01/19 22:18 REMEMBER Home Medications Home Medications Medication Instructions Recorded Confirmed Type cetirizine [Zyrtec] 10 mg PO HS 09/20/18 03/01/19 History diltiazem HCl [Cartia XT] 120 mg PO DAILY 09/20/18 03/01/19 History ergocalciferol (vitamin D2) 50,000 unit PO WK 09/20/18 03/01/19 History [Vitamin D2] fluocinonide 1 applic TOPICAL BID PRN 09/20/18 03/01/19 History fluoxetine [Prozac] 40 mg PO HS 09/20/18 03/01/19 History levothyroxine 150 mcg PO DAILY 09/20/18 03/01/19 History omeprazole 20 mg PO HS 09/20/18 03/01/19 History ursodiol 500 mg PO BID 09/20/18 03/01/19 History biotin 5,000 mcg SUBLINGUAL DAILY 03/01/19 03/01/19 History conjugated estrogens [Premarin] 0.625 mg PO DAILY 03/01/19 03/01/19 History Patient History Medical History Autoimmune hepatitis (Chronic 02/11/13) Corneal abrasion (Acute) Hypertension SVT (supraventricular tachycardia) Family History Other No pertinent family history in first degree relatives Social History Preferred Language: Swiss Communication Ability: Effective Beliefs That Will Affect Care: None Current Living Situation: Spouse Feels Safe at Home: Yes Safety Concerns: Feels Safe At This Time Smoking Status: Former smoker Smoking End Date: 1998 ; Hx Alcohol Use: Yes Alcohol type: wine Hx Substance Use: No Review of Systems Review of Systems: All systems reviewed & are unremarkable except as noted in HPI & below Physical Exam Physical Exam: General: NAD, AAO x3, well nourished. HEENT: Normocephalic. Atraumatic. Conjunctiva pink, no scleral icterus. Neck: No carotid bruits, the carotid upstrokes are brisk. No JVD. No HJR Heart: Regular normal S-1 and S-2 no S-3 or S-4 gallop. No murmurs or rub appreciated. PMI is not displaced. No RV heave. Lungs: Clear bilateral without rales , rhonchi, or wheeze. Abdomen: Normal bowel sounds. Soft. Nontender. No masses or organomegaly. No abdominal bruits. Extremities: No clubbing, cyanosis, or edema. Pulses: radial=2/4, Dorsalis pedis =2/4, posterior tibial=2/4. Neuro: Cranial nerves grossly intact. No focal motor deficit. Results & Data Vital Signs (Past 12 Hours) Vital Signs Temp Pulse Pulse Resp BP BP Pulse Ox 03/02/19 09:22 36.6 C 62 18 148/86 H 97 03/02/19 04:13 37 C 63 20 119/67 95 03/02/19 03:46 60 14 122/64 97 03/02/19 03:15 58 L 17 94 03/02/19 03:00 64 17 117/71 97 03/02/19 02:45 62 17 117/62 94 03/02/19 02:28 72 18 127/65 95 03/02/19 02:02 72 18 120/62 03/02/19 01:45 66 17 128/79 94 03/02/19 01:30 72 20 146/73 H 97 03/02/19 01:15 71 20 136/71 94 03/02/19 01:09 73 18 142/87 H 95 03/02/19 01:00 126 H 25 H 142/87 H 96 03/02/19 00:45 123 H 16 122/81 95 03/02/19 00:15 122 H 15 126/80 95 03/02/19 00:00 121 H 15 141/92 H 96 03/01/19 23:45 120 H 18 101/71 95 03/01/19 23:29 120 H 120 H 17 104/76 104/76 94 03/01/19 23:15 120 H 15 100/77 94 03/01/19 23:00 119 H 18 102/74 96 03/01/19 22:45 119 H 14 113/74 96 03/01/19 22:30 118 H 14 119/78 94 03/01/19 22:18 120 H 26 H 117/78 96 03/01/19 22:15 123 H 17 94 03/01/19 22:00 124 H 19 96 03/01/19 21:47 128 H 18 96 03/01/19 21:41 129 H 25 H 133/94 96
[2019-03-02 10:43] LABS: Appearance Urine Clear (Clear); Bilirubin Urine Negative (Negative); Blood Urine Negative (Negative); Color Urine Yellow; Glucose Urine UA Negative (Negative); Ketones Urine Trace (Negative); Leukocyte Esterase Urine Negative (Negative); Nitrite Urine Negative (Negative); Protein Urine Negative (Negative); Specific Gravity Urine 1.042 (1.000-1.030); Urobilinogen Urine Negative (Negative)
--- NOTE | 2019-03-02 12:54 | Hospitalist Progress Note ---
Date of Service March 02, 2019 Assessment & Plan (1) Arrhythmia: History of SVT, managed with diltiazem. PSVT usually responds to Valsalva maneuver. 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 Another daughter is a PA and her friend is an ED physician. They assessed her and noted pulse rate of 160-170. Someone at the fixing carpenter had propranolol and patient was given a dose. Brought to ED where monitor car operator and 12-lead EKG demonstrated narrow complex tachycardia at 120 / min. Tachycardia initially interpreted as ST. However, converted to NSR in 60's immediately after receiving dose of adenosine. Nature of arrhythmia in ED not certain, ? PAT vs SVT (response to adenosine suggests the latter). Lytes and TSH were normal. Seen in consultation by Cardiology. Metoprolol added to diltiazem for better rhythm control. Consideration of EPS suggested; patient will consider. (2) Elevated troponin: Weakness, diaphoresis, back pain associated with palpitations. EKG showed narrow complex tachyarrhythmia, no significant ST or T-wave abnormalites. Serial troponins: 0.074-0.128-0.088. Echo showed normal LV wall motion and function. Elevated troponin attributed to demand ischemia from tachycardia. Patient had stress test several years ago. Consider repeat stress test as outpatient. (3) Hypertension: Hypertension usually treated with diltiazem and lisinopril. Starting metoprolol / continuing diltiazem for better control of arrhythmias. Hold lisinopril pending recheck of blood pressure in clinic. (4) Discharge planning issues: Discharge to home. Family Medicine follow-up with Dr. Forrester. Cardiology follow-up with Raymundo Howell PA-C. Subjective Recheck for arrhythmias and other problems. Admitted last evening with palpitations, diaphoresis, back pressure. Had narrow complex tachycardia in ED with rate around 120. Received IV adenosine and converted to NSR in 60's. Feels better this morning. No CP, SOB, palpitations. Physical Exam Constitutional: no acute distress Respiratory: no respiratory distress Auscultation: lungs clear to auscultation bilaterally Cardiovascular: Rate/Rhythm: regular rate and regular rhythm Heart Sounds: no gallop, no murmur and no cardiac rub Vessels: no JVD Extremities: no calf tenderness and no edema Gastrointestinal (Abdomen): normal bowel sounds, soft, nontender, no hepatosplenomegaly Skin: no rashes, warm and dry Psychiatric: Orientation: alert and oriented x 3 Results & Data Vital Signs (Past 12 Hours) Vital Signs Temp Pulse Pulse Resp BP BP Pulse Ox 03/02/19 12:24 36.5 C 67 18 127/73 92 03/02/19 09:22 36.6 C 62 18 148/86 H 97 03/02/19 04:13 37 C 63 20 119/67 95 03/02/19 03:46 60 14 122/64 97 03/02/19 03:15 58 L 17 94 03/02/19 03:00 64 17 117/71 97 03/02/19 02:45 62 17 117/62 94 03/02/19 02:28 72 18 127/65 95 03/02/19 02:02 72 18 120/62 03/02/19 01:45 66 17 128/79 94 03/02/19 01:30 72 20 146/73 H 97 03/02/19 01:15 71 20 136/71 94 03/02/19 01:09 73 18 142/87 H 95 03/02/19 01:00 126 H 25 H 142/87 H 96 ECG Additional Comments: EKG performed at [address] vs PAT at 120 / min, no acute ST or T-wave abnormalities.
[2019-03-02] MEDS ORDERED: FLUOXETINE HCL 20 MG CAP PO SCH (21:00)
[2019-03-02] MEDS ORDERED: CETIRIZINE HCL 10 MG TABLET PO SCH (21:00)
[2019-03-02] MEDS ORDERED: PANTOprazole 40 MG TAB PO SCH (21:00)
--- NOTE | 2019-03-03 09:56 | Discharge Summary ---
Date of Service Date of Admission: 03/01/19 Date of Discharge: 03/02/19 Admission HPI Per Admitting Provider History obtained from patient and records. Medical history significant for hypertension, hyperlipidemia, SVT, mood disorder, primary biliary cirrhosis as per records, past tobacco abuse. Patient noted palpitations last night reminiscent of SVT attack associated with pain between her shoulder blades. No actual chest pain, no S OB. Legs more swollen than usual yesterday which patient attributed to prolonged standing. Patient had a busy day yesterday due to her daughter's wedding. Was able to take morning Cardizem pill. Less than usual caffeine intake yesterday. Patient did not get a lot of sleep the night before due to wedding preparations. Usual SVT frequency about twice a month usually terminated by vagal maneuvers at home. Palpitations persistent at the wedding healthcare receptionist last night despite vagal maneuvers. Patient was given Propanolol by her [id number] who happens to be an Emergency Medicine specialist. Patient later on felt sweaty. At the ER, patient noted to be tachycardic, cardiac rate 120-130s. Tachycardia resolved following IVF and adenosine administration. Patient currently comfortable. 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 Principal Diagnosis narrow complex tachyarrhythmia- SVT vs PAT elevated troponins- demand ischemia Discharge Data Allergies Allergy/AdvReac Type Severity Reaction Status Date / Time morphine Allergy Severe GI SYMPTOMS Verified 03/01/19 22:18 tobramycin Allergy Intermediate WORSENS Verified 03/01/19 22:18 EYE CONDITION AND SWELLING Penicillins Allergy Mild PURPLE Verified 03/01/19 22:18 SKIN AT HIGH DOSES Sulfa (Sulfonamide Allergy Mild PEREPHERIAL Verified 03/01/19 22:18 Antibiotics) SWELLING nitrofurantoin Allergy Unknown CAN'T Verified 03/01/19 22:18 REMEMBER Consultations 03/02/19 01:10 ED Decision to Admit Stat 03/02/19 04:13 Consult Cardiology Routine Ordered Studies 03/02/19 01:52 CT angio chest dissec wo/w con Urgent Hospital Course (1) Arrhythmia: History of SVT, managed with diltiazem. PSVT usually responds to Valsalva maneuver. Prolonged palpitations evening of admission at daughter's wedding healthcare receptionist, associated with weakness, diaphoresis, and back discomfort; did not respond to Valsalva. Another daughter is a PA and her friend is an ED physician. They assessed her and noted pulse rate of 160-170. Someone at the healthcare receptionist had propranolol and patient was given a dose. 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 Tachycardia initially interpreted as ST. However, converted to NSR in 60's immediately after receiving dose of adenosine. Nature of arrhythmia in ED not certain, ? PAT vs SVT (response to adenosine suggests the latter). Lytes and TSH were normal. Seen in consultation by Cardiology. Metoprolol added to diltiazem for better rhythm control. Consideration of EPS suggested; patient will consider. (2) Elevated troponin: Weakness, diaphoresis, back pain associated with palpitations. EKG showed narrow complex tachyarrhythmia, no significant ST or T-wave abnormalites. Serial troponins: 0.074-0.128-0.088. Echo showed normal LV wall motion and function. Elevated troponin attributed to demand ischemia from tachycardia. Patient had stress test several years ago. Consider repeat stress test as outpatient. (3) Hypertension: Hypertension usually treated with diltiazem and lisinopril. Starting metoprolol / continuing diltiazem for better control of arrhythmias. Hold lisinopril pending recheck of blood pressure in clinic. (4) Discharge planning issues: Discharged to home. Family Medicine follow-up with Dr. Forrester. Cardiology follow-up with Raymundo Howell PA-C. Total Time Total Time Spent Total Time Spent (In Minutes): 30 Discharge Plan Discharge Items Patient Disposition: Home - Self-Care Reason For Visit: palpitations Discharge Diagnosis: arrhythmia SVT (supraventricular tachycardia) possible PAT (paroxysmal atrial tachycardia) Condition: Good Discharge Goals: Decrease discomfort and Improve disease control Activity: Resume your previous activity Non-emergency contact: Primary Care Provider, Hospitalist and Air Route Traffic Controller Call non-emergency contact if: you have any medication questions and your symptoms worsen Follow-up/Referrals: Raymundo Howell [Physician Supplier Manager] - (Clinic will contact you with appointment.) Dudley Forrester MD [Primary Care Provider] - (03/05/2019 11:00 AM Dudley Forrester III, MD) Diet: Heart Healthy [facility] Provider Instructions: MEDICATION CHANGES: Start metoprolol tartrate (Lopressor) 25 mg twice a day for better control of arrhythmias. Continue diltiazem as before. Hold lisinopril for now. Both diltiazem and metoprolol will lower your blood pressure and we don't want your blood pressure to be too low. SUMMARY OF TEST RESULTS: Potassium 3.8, magnesium 2.1, TSH 1.76 (all normal). Troponin I 0.074, 0.128, 0.088 (slightly elevated, improving). EKG showed narrow complex tachycardia at 120/minute. Echocardiogram did not show any significant abnormalities. Chest x-ray did not show any problems. CT scan of chest did not show any evidence of pulmonary embolism (blood clot). PENDING TEST RESULTS: None. RECOMMENDATIONS FOR FOLLOW-UP: Please see Dr. Forrester for blood pressure check on 03/05. Will ask Raymundo Howell to see you as soon as possible for follow-up discussions (evaluation and treatment of arrhythmia, whether or not you should have a repeat stress test). OTHER INSTRUCTIONS: Seek medical attention if you have: * temperature above 101 * chest pain, prolonged palpitations, or trouble breathing * abdominal pain, nausea, vomiting * diarrhea, dark stools or bloody stools * any unanswered questions or concerns Call 911 if symptoms are severe. Please take good care of yourself. Call if you have any questions or problems. You can reach a [facility] hospitalist on duty at [facility] 24 hours a day by calling [phone]. My cell # is [phone]. Prescriptions: New metoprolol tartrate 25 mg tablet 25 mg PO BID Qty: 60 RF: 5 Continued fluoxetine [Prozac] 40 mg Capsule 40 mg PO HS RF: 0 cetirizine [Zyrtec] 10 mg Tablet 10 mg PO HS RF: 0 levothyroxine 150 mcg Tablet 150 mcg PO DAILY RF: 0 omeprazole 20 mg Capsule,Delayed Release(Dr/Ec) 20 mg PO HS RF: 0 diltiazem HCl [Cartia XT] 120 mg Capsule,Extended Release 24hr 120 mg PO DAILY RF: 0 ergocalciferol (vitamin D2) [Vitamin D2] 50,000 unit Capsule 50,000 unit PO WK RF: 0 fluocinonide 0.05 % Cream 1 applic TOPICAL BID PRN (Reason: Skin Irritation) RF: 0 ursodiol 500 mg Tablet 500 mg PO BID RF: 0 Premarin 0.625 mg Tablet 0.625 mg PO DAILY RF: 0 biotin 5,000 mcg Tablet, Sublingual 5,000 mcg SUBLINGUAL DAILY RF: 0 Discontinued lisinopril 40 mg tablet 40 mg PO DAILY RF: 0 Stand-Alone Forms: [facility] Discharge Orders: Discharge Order (Routine); Ordered 03/02/19 Ordered By: Dudley Rodríguez Admission Data Admit Date/Time: 03/02/19 03:12 Attending Provider: Dudley Rodríguez Admit Provider: Baldemar Avery Primary Care Provider: Dudley Forrester Other Providers: Baldemar Avery ; Noah Stoll Service: Telemetry Other Interventions: Discharge Summary Assessment (RN) Last Done: 03/02/19 13:16 DC Date/Time DO NOT enter until pt leaves facility: 03/02/19 13:39
== END 2019-03-02 13:39 | disposition home or self-care (01) ==
LOC: 2E 21:32 → ED 21:32 → 2E 03-02 03:46
DX: Z88.5 Allergy status to narcotic agent; Z88.8 Allergy status to other drugs, medicaments and biological substances; F39 Unspecified mood [affective] disorder; K75.4 Autoimmune hepatitis; K74.5 Biliary cirrhosis, unspecified; I47.1 Supraventricular tachycardia; Z88.0 Allergy status to penicillin; E78.5 Hyperlipidemia, unspecified; Z88.2 Allergy status to sulfonamides; Z88.1 Allergy status to other antibiotic agents; Z87.891 Personal history of nicotine dependence; R74.8 Abnormal levels of other serum enzymes; Z79.899 Other long term (current) drug therapy; I10 Essential (primary) hypertension

== ENCOUNTER 2020-07-20 07:03 | Observation (INO) ==
--- NOTE | 2020-06-14 13:35 | PAT Medication Instructions ---
Medication Instructions Date of Service June 14, 2020 Home Medications cetirizine [Zyrtec] 10 mg PO HS diltiazem HCl [Cartia XT] 120 mg PO QAM ergocalciferol (vitamin D2) [Vitamin D2] 50,000 unit PO WK fluocinonide 1 applic TOPICAL BID PRN fluoxetine [Prozac] 40 mg PO HS levothyroxine 150 mcg PO QAM omeprazole 20 mg PO HS ursodiol 500 mg PO BID Premarin 0.625 mg PO QAM aspirin 81 mg PO QPM lisinopril 10 mg PO QAM diclofenac sodium [Voltaren] 2 g TOPICAL QID PRN ibuprofen 600 mg PO Q6H PRN STOP taking 24 hours before surgery fluocinonide 1 applic TOPICAL BID PRN diclofenac sodium [Voltaren] 2 g TOPICAL QID PRN DO NOT take the morning of surgery ergocalciferol (vitamin D2) [Vitamin D2] 50,000 unit PO WK ursodiol 500 mg PO BID lisinopril 10 mg PO QAM Take morning of surgery With a small sip of water, OTHERWISE NOTHING TO EAT OR DRINK AFTER MIDNIGHT: diltiazem HCl [Cartia XT] 120 mg PO QAM levothyroxine 150 mcg PO QAM Premarin 0.625 mg PO QAM (unless otherwise instructed by your surgeon) Take evening before surgery cetirizine [Zyrtec] 10 mg PO HS fluoxetine [Prozac] 40 mg PO HS omeprazole 20 mg PO HS ursodiol 500 mg PO BID aspirin 81 mg PO QPM Other Notes If you have any questions please call us at [phone] or [phone] or [phone] or [phone]
--- NOTE | 2020-06-14 14:36 | Anesthesiology Consultation ---
Date of Service June 14, 2020 Assessment & Plan (1) Encounter for pre-operative examination: COVID Status: As of 06/14 assessment, patient denies travel to endemic area, known exposure/sick contacts, or symptoms of COVID19. Patient instructed that they and their household members must follow strict social distancing guidelines, wear a mask in public and avoid travel/events/gatherings for 14 days prior to surgery. Preoperative COVID19 testing to be completed prior to surgery per surgeon's arrangements. Patient made aware to self-isolate as much as possible between COVID testing and surgery. Chart Review Chart Review: Acceptable Risk for Surgery (pending cardio appt ([facility]) 07/08) and Patient seen in Pre Admission Testing Teaching & Discussion Instructed NPO after midnight before surgery, except medications with 15 cc of water. Medication instructions provided according to the PAT guidelines. History Surgery Operation Date: 07/20/20 08:50 Proposed Procedures p Total Knee Arthroplasty - Christ Sen MD Height/Weight Height: 5 ft 4 in Weight: 98.8 kg Allergies Allergy/AdvReac Type Severity Reaction Status Date / Time morphine Allergy Severe GI SYMPTOMS Verified 06/14/20 13:10 tobramycin Allergy Intermediate WORSENS Verified 06/14/20 13:10 EYE CONDITION AND SWELLING Penicillins Allergy Mild PURPLE Verified 06/14/20 13:10 SKIN AT HIGH DOSES Sulfa (Sulfonamide Allergy Mild PEREPHERIAL Verified 06/14/20 13:10 Antibiotics) SWELLING nitrofurantoin Allergy Unknown CAN'T Verified 06/14/20 13:10 REMEMBER vortioxetine AdvReac Unknown MOOD Verified 06/14/20 13:10 [From Brintellix] PROBLEMS, PAIN IN JOINTS Medications Home Medications Medication Instructions Recorded Confirmed Last Taken cetirizine [Zyrtec] 10 mg PO HS 09/20/18 06/14/20 02/28/19 diltiazem HCl [Cartia XT] 120 mg PO QAM 09/20/18 06/14/20 03/01/19 ergocalciferol (vitamin D2) 50,000 unit PO WK 09/20/18 06/14/20 02/23/19 [Vitamin D2] fluocinonide 1 applic TOPICAL BID PRN 09/20/18 06/14/20 Unknown fluoxetine [Prozac] 40 mg PO HS 09/20/18 06/14/20 02/28/19 levothyroxine 150 mcg PO QAM 09/20/18 06/14/20 03/01/19 omeprazole 20 mg PO HS 09/20/18 06/14/20 02/28/19 ursodiol 500 mg PO BID 09/20/18 06/14/20 03/01/19 09:00 Premarin 0.625 mg PO QAM 03/01/19 06/14/20 03/01/19 aspirin 81 mg PO QPM 03/06/19 06/14/20 Unknown lisinopril 10 mg PO QAM 04/07/19 06/14/20 Unknown diclofenac sodium [Voltaren] 2 g TOPICAL QID PRN 06/11/20 06/11/20 Unknown ibuprofen 600 mg PO Q6H PRN 06/11/20 06/11/20 Unknown Past Medical History Medical History (Updated 06/14/20 @ 16:22 by Julio Cesar Ibarra) Anxiety Autoimmune hepatitis (02/11/13) FOLLOWS W/ DR. JOSEPH Bilateral primary osteoarthritis of knee Chronic back pain Degenerative disc disease L1-L5 Depression Esophageal spasm GERD (gastroesophageal reflux disease) History of cluster headache History of malignant neoplasm of esophagus Granular cell tumor, S/P excision, did not require any other intervention. Hypertension Hypothyroidism Osteoarthritis Primary biliary cirrhosis FOLLOWS W/ DR. JOSEPH Psoriasis SVT (supraventricular tachycardia) DX 4-5 years ago - Follows w/ Raymundo Howell. S/p unsuccessful ablation 02/2019. Experiences symptoms every week or so, uses vagal maneuvers to abort rhythm. Past Family History Family History Father Colonic polyp Uncle Colon cancer Past Surgical History Surgical History History of cardiac cath 02/2019 - [facility] - SVT/PAIN/DIAPHORETIC/FACIAL NUMBNESS - NO STENTS/ANGIOPLASTY History of colonoscopy History of D&C History of esophagogastroduodenoscopy (EGD) History of foot surgery HARDWARE PRESENT BL History of liver biopsy History of tooth extraction History of total abdominal hysterectomy and bilateral salpingo-oophorectomy History of tubal ligation Hx of prior ablation treatment UNSUCCESSFUL PER PT Past Anesthesia History No Hx of Anesthesia Complications and No Family Hx of Anesthesia Complications History of PONV No Hx of PONV and Hx of Motion Sickness Social History Smoking Status: Former smoker tobacco type: cigarettes Do You Dip or Chew Tobacco: No Smoking End Date: QUIT 20+ YRS Hx Alcohol Use: Yes Alcohol type: wine alcohol intake frequency: 0-2 drinks per day (1 per evening) Hx Substance Use: No Review of Systems Pt denies any recent chest pain, shortness of breath, cough, fever, URI, or uncontrolled acid reflux. +palpitations, has not had for ~ 1 week but gets SVT every so often, relieved with vagal manuevers. Physical Exam Vital Signs BP: 142/84 P: 75bpm SPO2: 96% RA T: 98.6 F R: 16 ENMT Mouth: + dental restorations (few crowns) and + loose teeth (very mildly loose lower R cuspid); no chipped teeth Thyromental Distance: > or= 3.5 Finger Breadths Mallampati Class: I Neck neck extension not limited Respiratory normal respiratory effort, lungs clear to auscultation normal respiratory effort Cardiovascular Rate/Rhythm: regular rate and regular rhythm Heart Sounds: normal S1, normal S2 and + murmur (I/ RSB ICS II) Testing Laboratory Results 06/14/20 15:04 06/14/20 15:04 PT 10.3 Seconds (9.0-12.0) 06/14/20 15:04 INR 1.0 (0.9-1.1) 06/14/20 15:04 APTT 29.0 Seconds (21.0-31.0) 06/14/20 15:04 Blood Type O Positive 06/14/20 15:04 Antibody Screen NEGATIVE 06/14/20 15:04 Electrocardiogram Date: 06/14/20 Findings: + NSR @ (63bpm) Compared to EKG from 03/02/19, vent.rate has decreased by 59bpm, minimal criteria for anterior infarct no longer present, ST no longer depressed in anterior leads, NSTWA no longer evident in anterior leads. *unconfirmed Chest X-Ray Date: 06/14/20 Findings: + NAD Echocardiogram Date: 03/02/19 EF: 60-65% LV systolic function is normal. LV wall motion is normal. Pulse-wave TDI the a nterior and posterior mitral annulus demonstrates normal LV relaxation. There is trace mitral regurgitation and tricuspid regurgitation. Doppler findings do not suggest pulmonary hypertension. Cardiac Catheterization Date: 03/06/19 Summary: The coronary arteries are widely patent and normal.
[2020-06-14 15:39] LABS: Basophils # (auto) 0.03 K/uL (0-0.2); Basophils % (auto) 0.3 %; Eosinophils # (auto) 0.06 K/uL (0-0.5); Eosinophils % (auto) 0.6 %; Hematocrit (blood only) 37.4 % (37-47); Hemoglobin 12.4 g/dL (12.0-16.0); Immature Granulocytes # (auto) 0.05 K/uL (0.00-0.02); Immature Granulocytes % (auto) 0.5 %; Lymphocytes # (auto) 1.72 K/uL (1.2-3.4); Lymphocytes % (auto) 16.8 %; Mean Corpuscular Hemoglobin 28.9 pg (25-34); Mean Corpuscular Hgb Conc 33.2 g/dL (32-36); Mean Corpuscular Volume 87.2 fL (80-100); Mean Platelet Volume 10.7 fL (7.4-10.4); Monocytes # (auto) 0.74 K/uL (0.11-0.59); Monocytes % (auto) 7.2 %; Neutrophils # (auto) 7.66 K/uL (1.4-6.5); Neutrophils % (auto) 74.6 %; Platelet Count 325 K/uL (130-400); RDW Standard Deviation 44.3 fL (36.4-46.3); Red Blood Count 4.29 M/uL (4.2-5.4); White Blood Count 10.26 K/uL (4.8-10.8)
--- NOTE | 2020-06-14 15:42 | XRay Report ---
XR chest Pre-admission PA/Lat CLINICAL HISTORY: Preoperative evaluation. COMPARISON STUDY: No previous studies for comparison. FINDINGS: Lung volumes are normal. Lungs are clear. There is no pneumothorax or pleural effusion. Car diac size is normal. Mediastinal contours are normal. There is no evidence for pulmonary edema. IMPRESSION: No acute cardiopulmonary findings. ACT 112: Negative or not required by law. Electronically signed by: Vipul Mckeon M.D. 06/14/2020 3:41 PM
[2020-06-14 16:04] LABS: BUN Creatinine Ratio 16.3 (10-20); Calcium 9.1 mg/dl (8.5-10.1); Creatinine Clr Calc Pharmacy 64.3 ml/min; Est GFR (African American) 68.1; Est GFR (Non-African American) 58.8; Potassium 4.1 mmol/L (3.5-5.1); Prothrombin Time 10.3 Seconds (9.0-12.0)
--- NOTE | 2020-06-15 16:42 | Electrocardiogram Report ---
Test Reason : Blood Pressure : / mmHG Vent. Rate : 063 BPM Atrial Rate : 063 BPM P-R Int : 168 ms QRS Dur : 096 ms QT Int : 434 ms P-R-T Axes : 070 080 049 degrees QTc Int : 444 ms Normal sinus rhythm Normal ECG When compared with ECG of 02-MAR-2019 06:41, Vent. rate has decreased BY 59 BPM Minimal criteria for Anterior infarct are no longer Present ST no longer depressed in Anterior leads Nonspecific T wave abnormality no longer evident in Anterior leads Confirmed by Harsha Thibodeaux ([id number]) on 06/15/2020 4:42:21 PM Referred By: Christ Sen Confirmed By:Harsha Thibodeaux
--- NOTE | 2020-07-13 11:07 | History and Physical Report ---
DATE OF ADMISSION: 07/20/2020 CHIEF COMPLAINT: Bilateral knee pain and discomfort, right side greater than the left. HISTORY OF PRESENT ILLNESS: The patient is a 64-year-old female who has been a long-term patient of mine who presents now for surgical treatment of her knees. She has got a long history of bilateral knee pain and discomfort, this has gradually gotten worse over the past several years. She has become more debilitated by her pain. She cannot walk any significant distance. She has been through extensive conservative treatment including shots and oral medicines, which have become less successful over time. Her is quite ill with Sebastian's chorea and she could not have anything done previously. Now, he is in assisted living and she would like to have her knees fixed. The right knee bothers a little bit more than the left. She does have some chronic back pain. PAST MEDICAL HISTORY: Significant for, 1. SVT. 2. Hypothyroidism. 3. Elevated cholesterol. 4. Hypertension. 5. Gastroesophageal reflux disease. 6. Hepatitis. 7. Obesity with a BMI of 37. PAST SURGICAL HISTORY: Includes, 1. Bunion surgery. 2. Cardiac ablation failed. 3. Hysterectomy. ALLERGIES: SULFA, PENICILLIN, TOBRAMYCIN, MACROBID, MORPHINE. CURRENT MEDICINES: Include, 1. Levothyroxine. 2. Omeprazole. 3. Ursodiol. 4. Lisinopril. 5. Diltiazem. 6. Premarin. 7. Fluoxetine. 8. Vitamin D. 9. Zyrtec. 10. Baby aspirin. SOCIAL HISTORY: A 64-year-old female. Lives in [place]. She is . Lives alone. Her is in assisted living. 1-2 drinks per day. Two children. FAMILY HISTORY: Noncontributory. REVIEW OF SYSTEMS: Negative for diabetes, neurologic problem, vascular problems or bleeding disorders. No chest pain or shortness of breath. No history of DVT or PE. She does have a history of SVT with a failed ablation. She is under medical management. PHYSICAL EXAMINATION: GENERAL: Shows a pleasant, middle-aged female. Looks to be in pretty good health. HEENT: Benign. NECK: Supple, no lymphadenopathy. LUNGS: Clear to auscultation. HEART: Has a regular rate and rhythm. ABDOMEN: Soft, nontender, nondistended. EXTREMITIES: Grossly neurovascularly intact except as follows: Examination of both knees reveals the patient walks with a bit of a waddling gait. She has got varus alignment to both knees. She has got bony hypertrophy and tenderness medially. Range of motion is pretty symmetric with 5 degrees short of full extension to about 110 degrees of flexion. There is no instability. No pain with hip motion. X-RAYS: X-rays of both knees were reviewed. It shows advanced bilateral knee DJD. The right side is a bit worse than the left. She has complete loss of her joint space medially. She has subchondral sclerosis. She has got osteophytes primarily on the medial side of her knee. ASSESSMENT: A 64-year-old female with several medical comorbidities including history of supraventricular tachycardia, hypothyroidism, elevated cholesterol, hypertension, gastroesophageal reflux disease and obesity with advanced bilateral knee degenerative joint disease. She has failed conservative treatment, now would like to consider a surgical treatment. PLAN: We are going to take her to the operating room and do right total knee replacement. The risks and benefits of this procedure were explained to the patient including but not limited to DVT, PE, , infection, neurological injury, vascular injury, bleeding problem, pain, limited range of motion, stiffness, failure to relieve her symptoms, incomplete relief of symptoms, need for further surgery in the future, fracture, leg length inequality, nerve palsy, etc. The patient understands and desires to proceed. Informed consent was obtained. As far as discharge plans, she is planning to be discharged to home. Her daughter is a physician carpenter assistant and is going to help assist in her care. We will likely use Dilaudid initially for pain control and then switch to tramadol as she says her pain tolerance is pretty low. She will hold lisinopril on the morning of surgery.
[~2020-07-20 07:03] MED LIST changes: +ACETAMINOPHEN 500 MG TAB PO SCH; -ACT300 PO; +BUPIVACAINE 0.25% 30 ML VIAL ONE; +BUPIVACAINE 0.5 % 5 MG/1 ML PF 10ML VIAL ONE; +BUPIVACAINE LIPOSOME/PF 266 MG, BUPIVACAINE/EPINEPHRINE 50 ML, SODIUM CHLORIDE 0.9% 30 ... INFIL SCH; -CETI10TA84 PO; -DESO0.259 TOP; -DILT120C68 PO; -ERGO500037 PO; -ESTR0.3T PO; +FAMOTIDINE 20 MG TAB PO SCH; -FLUO40CA8 PO; +GABAPENTIN 600 MG DOSE PO SCH; -HYOS1TAB PO; -LEVO150T PO; -LIDO2SOL17 PO; -LISI5TAB3 PO; +LR 500ML BOLUS, THEN 15ML/HR IV SCH; +LR 60ML/HR IV SCH; +METOCLOPRAMIDE HCL 10 MG TABLET PO SCH; -MULT-506 PO; -PHEN1ELX5 PO; -PRLSR20 PO; -RANI150T85 PO; +TRANEXAMIC ACID 1,000 MG **IV Intra-op IV SCH; -ZOLP5TAB PO
[2020-07-20] MEDS ORDERED: ONDANSETRON INJ 2 MG/ML 2 ML VIAL ONE (07:30)
[2020-07-20] MEDS ORDERED: LIDOCAINE HCL 2% 2 ML VIAL/AMP(20MG/ML) INFIL ONE (07:30)
[2020-07-20] MEDS ORDERED: MIDAZOLAM HCL 1 MG/ML 2ML VIAL ONE (07:30)
[2020-07-20] MEDS ORDERED: PROPOFOL IV EMULSION 10 MG/ML 20 ML VIAL IV ONE (07:30)
[2020-07-20] MEDS ORDERED: fentaNYL citrate 100 MCG/2 ML VIAL ONE (07:30)
[2020-07-20] MEDS ORDERED: ONDANSETRON INJ 2 MG/ML 2 ML VIAL IV PRN ×2 (08:39→12:45)
[2020-07-20] MEDS ORDERED: ATROPINE SULFATE 0.1 MG/ML 10ML SYR IV PRN (08:39)
[2020-07-20] MEDS ORDERED: fentaNYL citrate 100 MCG/2 ML VIAL IV PRN (08:39)
[2020-07-20] MEDS ORDERED: ePHEDrine sulfate 50 MG/ML AMP IV PRN (08:39)
[2020-07-20] MEDS ORDERED: BACITRACIN INJ 50,000 UNIT VIAL ONE (09:08)
[2020-07-20] MEDS ORDERED: BUPIVACAINE LIPOSOME 1.3% 266 MG/20 ML VIAL ONE (09:08)
[2020-07-20] MEDS ORDERED: SODIUM CHLORIDE 0.9% PF 50 ML VIAL ONE (09:08)
[2020-07-20] MEDS ORDERED: ceFAZolin 2,000 MG/15 ML IV PUSH IV ONE (09:08)
[2020-07-20] MEDS ORDERED: BUPIVACAINE 0.25% 30 ML VIAL ONE (09:09)
[2020-07-20] MEDS ORDERED: EPINEPHrine INJ 1 MG/ML AMP ONE (09:09)
[2020-07-20] MEDS ORDERED: ceFAZolin 2000MG 2,000 MG/15 ML SYR IV ONE (09:19)
--- NOTE | 2020-07-20 09:20 | History & Physical Bridge Note ---
Date of Service July 20, 2020 History & Physical Bridge Note I have examined the patient, reviewed the History & Physical and in the interval since the performance of the History & Physical I have noted the following changes of clinical significance: no changes noted
--- NOTE | 2020-07-20 11:00 | Post Operative Brief Note ---
PG Immediate Post Op with CF Date of Surgery July 20, 2020 Pre & Post Diagnosis Operation Date: 07/20/20 08:50 Pre-Op Diagnosis: Right Knee Advanced Degenerative Joint Disease Post-Op Diagnosis: Right Knee Advanced Degenerative Joint Disease I identified the patient and participated in the time-out.: Yes Procedure Operation Date: 07/20/20 08:50 Actual Procedures p Right Total Knee Arthroplasty(Right) - Christ Sen MD Surgeon Christ Sen MD Access Services Representative JOAN Thompson Estimated Blood Loss 50 Findings Consistent with Post-Op Diagnosis Fluids 1100 cc Specimens Specimen Description: A. Right Knee Bone and Tissue Drains Cervantes Catheter Anesthesia Type Spinal MAC Complications none Disposition Accompanied Patient To Recovery: No Disposition: Recovery Room
[2020-07-20] MEDS ORDERED: HYDROmorphone HCL 2 MG TAB PO PRN (11:08)
--- NOTE | 2020-07-20 11:15 | Operative Report ---
Post Operative Report Pre & Post Diagnosis Operation Date: 07/20/20 08:50 Pre-Op Diagnosis: Right Knee Advanced Degenerative Joint Disease Post-Op Diagnosis: Right Knee Advanced Degenerative Joint Disease I identified the patient and participated in the time-out.: Yes Procedure Operation Date: 07/20/20 08:50 Actual Procedures p Right Total Knee Arthroplasty(Right) - Christ Sen MD Surgeon Christ Sen MD Director Hedis JOAN Thompson Estimated Blood Loss 50 Findings Consistent with Post-Op Diagnosis Operative findings revealed advanced right knee DJD with extensive grade 4 [id number] disease primarily in the medial compartment. She had osteophytes in the medial femoral condyle medial tibial plateau. She had varus deformity to her knee. A moderate sized joint effusion. Some moderate synovitis. Fluids 1100 cc. Specimens Right knee sent for pathology. Anesthesia Type Spinal MAC Complications none Disposition Accompanied Patient To Recovery: No Disposition: Recovery Room Indications Patient is a 64-year-old female said a long history of bilateral knee pain discomfort describes gotten worse over the past several years. She has been through extensive conservative treatment which became less successful over time. She was caring for an ill and put in surgery off. He has now been placed in a care facility and she does not like to have her knees fixed. The right knee is bothering more than the left. She elected proceed with right total knee arthroplasty. Description of Procedure Operative implants consist of: 1. Biomet Vanguard size 62.5 right posterior stabilized femoral component. 2. Biomet size 67 tibial tray. 3. 10 mm posterior stabilized polyethylene insert. 4. 28 x 8 all polypatella. Patient was taken to the operating identified and placed on the operating table supine position but all contact areas were properly padded. IV antibiotics tried by anesthesia team. A spinal anesthetic and abductor canal block had provided in the holding area. Cervantes catheter was placed in sterile fashion right thigh foot was then placed in the right lower extremities and prepped and draped in usual sterile fashion. Right leg was elevated exsanguinated with use of an Esmarch interspace at 300 mmHg. An anterior approach of the right knee was then performed to longitudinal incision centered over the patella. Sharp dissection was got through subcutaneous tissue down to the extensor mechanism. A medial parapatellar arthrotomy incision was made. Some subperiosteal dissection was carried out medially. The fat pad was resected from each patella tendon. Lateral patellofemoral ligament was released. Patella was subluxated laterally and the knee was flexed. The osteophytes were taken off distal femur. The ACL and PCL were then released from distal femur and the tibia subluxate anteriorly. The external treatment line jig was then placed in the interface the tibia and adjusted 14 mm medially. Proximal tibial cut was made remove about 2 to 3 mm of bone from most efficient aspect and medial tibial plateau. Some osteophytes we re taken off medial and posterior medially. Tibia sized to a size 67. Attention drawn the femur. The distal femur was entered with a sharp drill. Intramedullary canal was suction. A right 5 degree valgus cutting guide was placed. This femoral cutting block was pinned in place. The distal femoral cut was made to take an additional 3 mm bone off distal femur. The femur was then sized to a size 62.5. We did downsize a slightly. The AP cutting block was pinned parallel to the epicondylar axis which was 3 degrees of external rotation. The anterior cut, anterior chamfer, posterior cut, posterior chamfer cuts were made. Box cutting guide was placed in just slight lateral box cut was made. The knee was flexed. The remnants of the medial lateral menisci were excised. The osteophytes were taken off the posterior aspect the femur. A trial femoral component was placed. Tibial tray was pinned in maximum external rotation and the drill and stem punch were used to create defect the proximal tibia for the tibial tray. Knee was then trialed and the 10 mm insert fit most appropriately. Attention drawn the patella. The patella was cleaned of all soft tissues. Patella thickness measured 18 mm in thickness was cut down to 12. Sized to a size 28 patella. The lug holes were drilled for the 28 patella. The lateral osteophyte is moved. Patella button was placed. Knee was taken through range of motion patella tracked nicely with no thumbs test. Attention drawn to place the permanent components. All trial components were removed. Bone plug was placed in the distal femur l imit blood loss. A double batch Palacos G cement was mixed. Biomet [employer] size 62.5 right posterior stabilized femoral component, size 67 tibial tray, a 10 mm posterior stabilized polyethylene insert, and a 28 x 8 all polypatella were then cemented in place. Knee was brought under full extension total cement hardened. Final cement check was then performed. The pericapsular tissues were injected with total of 100 cc of combination of 20 cc of Exparel, 30 cc normal saline, 50 cc of quarter percent Marcaine with epinephrine. Patient did receive 1 g tranexamic acid per the tech was then let down for final turn time 51 minutes. Hemostasis assured with electrocautery. The extensor mechanism closed with combination 1 PDS suture #1 Vicryl suture in [id number] fashion. Extensor mechanism checked found to be intact the subcutaneous tissue then closed with 2 Dexon suture in a buried interrupted fashion skin was closed skin bernabe. Leg was then cleaned dried and sterile dressing was Xeroform, 4 x 4's, sterile cast padding, Armin bandage were applied. Patient then transferred to the recovery room in stable condition. The patient tolerated the procedure well and there were no complications. Mir Thompson, my physician patient care nursing assistant, was present for the entire procedure. His assistance was essential and required for appropriate patient positioning, prepping and draping, surgical exposure, performing the technical details of the operation, placement the implants, closure of the wound, and placement of the sterile bandage. I attest to the content of the Intraoperative Record and any orders documented therein. Any exceptions are noted below.
--- NOTE | 2020-07-20 11:27 | XRay Report ---
XR knee RT 1 or 2V routine HISTORY: 64 years-old Female Surgical Post Op right knee total joint arthroplasty COMPARISON: None TECHNIQUE: 2 views of the right knee FINDINGS: Right knee total joint arthroplasty and patella resurfacing. Anterior midline skin bernabe are noted along with expected postsurgical soft tissue swelling and deep tissue air with surgical drainage cath eter. No acute fracture, dislocation or unexpected opaque foreign body. IMPRESSION: Right knee total joint arthroplasty with expected postoperative changes. ACT 112: Negative or not required by law. The above report was generated using voice recognition software. It may contain grammatical, syntax o r spelling errors. Electronically signed by: Manan Kirk M.D. 07/20/2020 11:26 AM
--- NOTE | 2020-07-20 11:50 | Anesthesiology Progress Note ---
Date of Service July 20, 2020 Anesthesia Post Procedure Vital Signs Vital Signs: Temp Pulse Pulse Resp BP BP Pulse Ox 07/20/20 11:45 36.3 C L 58 L 13 138/62 94 07/20/20 11:35 69 20 135/65 96 07/20/20 11:25 60 15 121/56 L 94 07/20/20 11:15 67 14 139/59 L 96 07/20/20 11:06 36.4 C L 81 16 127/60 95 07/20/20 08:06 36.8 C 92 H 18 157/84 H 95 Transfer of Care Handoff Completed per policy Notes Mental Status: alert / awake / arousable and participated in evaluation Patient Amnestic to Procedure: Yes Nausea / Vomiting: adequately controlled Pain: adequately controlled Airway Patency, RR, SpO2: stable & adequate BP & HR: stable & adequate Hydration State: stable & adequate Neuraxial Anesthesia: was administered and sensory block is resolving Anesthetic Complications: no major complications apparent and Pt Satisfied with anesthetic care
[2020-07-20] MEDS ORDERED: METOCLOPRAMIDE HCL INJ 5 MG/ML 2 ML VIAL IV PRN (12:45)
[2020-07-20] MEDS ORDERED: ALUMINUM/MAGNESIUM SUSP 30 ML UDC PO PRN (12:45)
[2020-07-20] MEDS ORDERED: MAGNESIUM HYDROXIDE SUSP 30 ML UDC PO PRN (12:45)
[2020-07-20] MEDS ORDERED: FLUOCINONIDE 0.05% CR 15 GM TUBE EXT PRN (12:45)
[2020-07-20] MEDS ORDERED: diphenhydrAMINE Capsule 25 MG CAP PO PRN (12:45)
[2020-07-20] MEDS ORDERED: bisacodyL 10 MG SUPP PR PRN (12:45)
[2020-07-20] MEDS ORDERED: NALOXONE HCL 0.4 MG/1 ML VIAL/CARP IV PRN (12:45)
[2020-07-20] MEDS: Scopolamine CHECK PATCH PLACEMENT SCH ×4 (13:53→23:53)
[2020-07-20] MEDS: KETOROLAC 30 MG/ML VIAL IV SCH ×2 (14:04→20:40)
[2020-07-20] MEDS: SODIUM CHLORIDE 0.9% 1000ML 1,000 ML IV SCH (14:04)
[2020-07-20] MEDS: FERROUS GLUCONATE 324 MG TAB PO SCH (15:59)
[2020-07-20] MEDS: ACETAMINOPHEN 500 MG TAB PO SCH ×2 (15:59→20:40)
[2020-07-20] MEDS: ASCORBIC ACID 500 MG TAB PO SCH (16:00)
[2020-07-20] MEDS ORDERED: TRANEXAMIC ACID / 0.7% NACL 1,000 MG/100 ML BAG IV SCH (17:04)
[2020-07-20] MEDS: ceFAZolin 2000MG 2,000 MG/15 ML SYR IV SCH (17:21)
[2020-07-20] MEDS: HYDROmorphone INJ 0.5 MG/0.5 ML SYR IV PRN (17:52)
[2020-07-20] MEDS: ASPIRIN 81 MG ECTAB PO SCH (20:41)
[2020-07-20] MEDS: DOCUSATE SODIUM 100 MG CAP PO SCH (20:42)
[2020-07-20] MEDS: TAPENTADOL HCL ER 50 MG TABCR PO SCH (20:54)
[2020-07-20] MEDS ORDERED: FLUoxetine HCL 20 MG CAP PO SCH (21:00)
[2020-07-20] MEDS ORDERED: SENNA 8.6 MG TAB PO SCH (21:00)
[2020-07-20] MEDS ORDERED: CETIRIZINE HCL 10 MG TABLET PO SCH (21:00)
[2020-07-20] MEDS ORDERED: PANTOprazole 40 MG TAB PO SCH (21:00)
[2020-07-21] MEDS ORDERED: Nursing to Pharmacy Communication SCH (01:30)
[2020-07-21] MEDS: KETOROLAC 30 MG/ML VIAL IV SCH ×3 (01:33→14:45)
[2020-07-21] MEDS: ceFAZolin 2000MG 2,000 MG/15 ML SYR IV SCH (01:33)
[2020-07-21] MEDS: HYDROmorphone INJ 0.5 MG/0.5 ML SYR IV PRN (05:06)
[2020-07-21] MEDS: ACETAMINOPHEN 500 MG TAB PO SCH ×2 (06:13→14:43)
[2020-07-21] MEDS ORDERED: LEVOTHYROXINE SODIUM 150 MCG TABLET PO SCH (06:30)
[2020-07-21] MEDS: SODIUM CHLORIDE 0.9% 1000ML 1,000 ML IV SCH (07:11)
[2020-07-21 08:12] LABS: Hematocrit (blood only) 34.5 % (37-47); Hemoglobin 11.4 g/dL (12.0-16.0); Mean Corpuscular Hemoglobin 28.9 pg (25-34); Mean Corpuscular Volume 87.6 fL (80-100); Mean Platelet Volume 10.6 fL (7.4-10.4); Platelet Count 286 K/uL (130-400); RDW Coefficient of Variation 14.3 % (11.5-14.5); Red Blood Count 3.94 M/uL (4.2-5.4); White Blood Count 6.94 K/uL (4.8-10.8)
[2020-07-21 08:31] LABS: BUN Creatinine Ratio 13.3 (10-20); Calcium 8.2 mg/dl (8.5-10.1); Creatinine Clr Calc Pharmacy 74.4 ml/min; Est GFR (African American) 82.7; Est GFR (Non-African American) 71.4; Potassium 3.9 mmol/L (3.5-5.1)
[2020-07-21] MEDS ORDERED: hydroCHLOROthiazide 25 MG TAB PO SCH (09:00)
[2020-07-21] MEDS ORDERED: MULTIVITAMIN TAB PO SCH (09:00)
[2020-07-21] MEDS ORDERED: ESTROGENS, CONJUGATED 0.625 MG TAB PO SCH (09:00)
[2020-07-21] MEDS ORDERED: NON-FORMULARY MEDICATION (Biotin 5 mg Capsule) PO SCH (09:00)
[2020-07-21] MEDS ORDERED: lisinopril 10 MG TAB PO SCH (09:00)
[2020-07-21] MEDS ORDERED: dilTIAZem HCL 120 MG CAPCR PO SCH (09:00)
[2020-07-21] MEDS: Scopolamine CHECK PATCH PLACEMENT SCH (09:08)
[2020-07-21] MEDS: ASPIRIN 81 MG ECTAB PO SCH (09:13)
[2020-07-21] MEDS: DOCUSATE SODIUM 100 MG CAP PO SCH (09:13)
[2020-07-21] MEDS: ASCORBIC ACID 500 MG TAB PO SCH (09:13)
[2020-07-21] MEDS: FERROUS GLUCONATE 324 MG TAB PO SCH (09:14)
--- NOTE | 2020-07-21 09:18 | Progress Notes ---
DATE: 07/21/2020 SUBJECTIVE: A 64-year-old female postoperative day 1 from a right knee replacement. She is doing okay. Having a moderate amount of pain, but doing okay with the Dilaudid. No chest pain or shortness of breath. Not feeling dizzy or lightheaded. OBJECTIVE: VITAL SIGNS: Temperature 37.0. Vital signs stable. GENERAL: Shows a pleasant, middle-aged female. She is sitting up in bed, looks reasonably comfortable this morning. LUNGS: Clear to auscultation. HEART: Regular rate and rhythm. ABDOMEN: Soft, nontender, nondistended. EXTREMITIES: Grossly neurovascularly intact except as follows. Examination of the right leg reveals the leg to be well aligned. Dressing is clean, dry and intact. She can do a straight leg raise with just a slight bit of a lag. She can dorsiflex and plantarflex her foot appropriately. She is neurologically intact. LABORATORY DATA: Hemoglobin 11.4. Hematocrit 34.5. Electrolytes are pending. ASSESSMENT: A 64-year-old female postop day 1 from a right knee replacement, doing pretty well. She is having a moderate amount of pain, which is to be expected and seems to be under control with the Dilaudid. PLAN: 1. DVT prophylaxis including thigh-high TEDs, SCDs, and aspirin twice a day. 2. PT/OT. She can weightbear as tolerated. Right total knee protocol. 3. Pain control, doing okay with current pain regimen. 4. Disposition: She is hoping to be discharged to home. We are going to see how therapy goes today. Hopefully, we will discharge maybe later today with some home health.
[2020-07-21] MEDS: TAPENTADOL HCL ER 50 MG TABCR PO SCH (09:24)
--- NOTE | 2020-07-22 08:50 | Discharge Summary ---
Date of Service July 22, 2020 Admission HPI Per Admitting Provider Documented in the H & P Admission Exam (Per Admitting) Constitutional Documented in the H & P Discharge Data Consultations 07/20/20 12:45 Consult Case Management - Discharge Planning Routine Procedures Performed Operation Date: 07/20/20 08:50 Actual Procedures p Right Total Knee Arthroplasty(Right) - Christ Sen MD Hospital Course (1) Status post total right knee replacement: This patient is a 64 year old female admitted on 07/20/20 and underwent total knee arthroplasty. She tolerated the procedure well and there were no complications. Transferred to the PACU post op and later to the orthopedic floor for further care. She was given ancef for antibiotic prophylaxis. She was also given AKTLIN stockings, SCDs, and aspirin for DVT prophylaxis. Hemoglobin, hematocrit, and vital signs were monitored during her hospital stay and remained stable. Did not require any blood transfusions. There were no complications during her hospital stay. By post op day #1 the patient was tolerating a regular diet, pain was reasonably controlled with oral pain medicine, and she was participating in physical therapy. On post op day #1 the patient was discharged home and set up with home health care. She was given printed discharge instructions including prescriptions for extra strength tylenol, aspirin, zofran, toradol, and dilaudid. Continue physical therapy, weight bearing as tolerated. Continue KATLIN stockings. Follow up approximately 2 weeks post op or sooner if there are proble ms or concerns. Coding Level of Care Code None Diagnoses Status post total right knee replacement Z96.651
[2020-07-25] MEDS ORDERED: ERGOCALCIFEROL 50,000 UNITS 1250 MCG CAP PO SCH (09:00)
== END 2020-07-21 17:30 | disposition home health service (06) ==
LOC: 3W 07:03 → ASU 07:03

== ENCOUNTER 2023-04-30 21:43 | Observation (INO) ==
[2023-04-30] MEDS ORDERED: SODIUM CHLORIDE 0.9% 500 ML IV STA (22:14)
[2023-04-30] MEDS ORDERED: dilTIAZem HCl 5 MG/ML 5 ML VIAL IV STA (22:14)
--- NOTE | 2023-04-30 22:14 | Emergency Department Note ---
Impression & Plan Atrial flutter with rapid ventricular response ED Provider Note NAME: SKYLER ZIMMERMAN AGE: 67 SEX: F : 1955 ARRIVES VIA: Walk-In INFORMANT: Patient, ED PROVIDER(S): Giovany Tirado MD CHIEF COMPLAINT: Elevated heart rate MEDICAL DECISION MAKING: Patient presents due to concern for elevated heart rate. Initial EKG shows likely a flutter with 2 1 block. IV was established and blood work was obtained. The patient was ordered a Cardizem bolus. This did not significantly change her rate in addition to IV fluids the patient was started on Cardizem drip. Heparin also ordered after review of the patient's blood work. Patient's blood work showed normal white count hemoglobin and platelet counts with normal kidney function. The patient's alk phos slightly elevated 107. TSH normal with normal troponin. I did speak the on-call hospitalist there service Dr. Dahl and the patient was admitted to the medicine service. Critical Care: I have personally spent 45 minutes of critical care time in direct management of this patient. This includes bedside care, interpretation of diagnostic studies, and testing, discussion with consultants, patient, and family members, and other require inpatient management activities. This 45 minutes is in excess of all separately billable procedures. Discussion w/ other healthcare providers: Dr. Dahl inpatient medicine Prior /Outside records reviewed: I reviewed an orthopedics visit from Dr. Sen. Patient was seen for follow-up for left and right knee replacements. Differential diagnosis: SVT, A-fib, atrial flutter,, dehydration, hypovolemia, anemia, infection, hypoglycemia, electrolyte abnormalities, arryhthmia, tox among others were considered. Diagnostics, as interpreted by me: ECG: Atrial flutter with 2 1 block, rate of 133 normal QRS duration normal axis. Cardiac monitoring: An order was placed for continuous cardiac monitoring. The monitor shows a rate of 125 with regular rhythm. Patient was placed on pulse oximetry Medical decision rules: [id number] score Imaging studies: I informally interpreted the patient's chest x-ray which does not show obvious pneumothorax with formal report to follow. HPI: Patient presents due to concern for tachycardia. The patient states that she has been under increasing amount of duress and stress. The patient's does have Sebastian's and the patient was doing some extra activities as well as trying to care for her who is currently in a care facility. Patient states that she was wearing Fitbit when she noticed her heart rate ranging anywhere from the 90s to 130s. 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 Patient does have some mild shortness of breath but without any chest pain. Patient denies any falls or trauma no cough or fever. Patient denies any alcohol tobacco or drug use. Patient does have a prior history of an ablation for SVT. The patient does follow with Raymundo Howell with [facility]. Patient has noticed some occasional pedal edema which is present this morning the patient otherwise denies any leg swelling or calf pain. Patient denies any prior history of PE or DVT. No recent surgeries procedures or hospitalizations patient currently is on Cardizem. Patient states she is compliant with her medication. She does not take a blood thinner. The patient does not believe that she has prior history of atrial flutter or atrial fibrillation but only SVT. The patient has received adenosine for chemical cardioversion for SVT in the past PAST MEDICAL HISTORY: See Below PAST SURGICAL HISTORY: See Below SOCIAL HISTORY: See Below HOME MEDICATIONS: See Below ALLERGIES: See Below VITALS: See Below PHYSICAL EXAMINATION: GENERAL: NAD, non-toxic. EYE EXAM: Normal conjunctiva. PERRL, no anisocoria and EOM's grossly intact w/o pain. OROPHARYNX: Moist mucus membranes, grossly normal dentition. NECK: Supple, no nuchal rigidity, no adenopathy, non-tender. No signs of meningismus. FROM of the neck with good chin to chest and neck extension. No stridor. LUNGS: Clear to auscultation. Normal chest wall mechanics. HEART: Tachycardic and regular, no MRG. ABDOMEN: Abdomen soft, non-tender, no masses, no rebound or guarding. BACK: No CVA TTP. SKIN: No rashes and no bruising. UPPER EXTREMITIES: Upper extremities are grossly normal. LOWER EXTREMITIES: Grossly normal, no edema. Negative Homans' sign bilaterally. NEURO EXAM: A&O x3, cranial nerves II-XII grossly intact, normal speech, moves all 4 extremities. Past Med/Surg History Medical History Anxiety Autoimmune hepatitis (02/11/13) FOLLOWS W/ DR. 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 Hypertension Decreased since SVT has stopped Hypothyroidism Incomplete RBBB follows with [facility] Lumbar spondylosis Lumbar spondylosis Osteoarthritis severe Primary biliary cirrhosis FOLLOWS W/ DR. JOSEPH Psoriasis SVT (supraventricular tachycardia) DX 2019 years ago - Follows w/ Raymundo Howell. S/p unsuccessful ablation 02/2019. November 22, 2020 - repeat ablation done at [facility] - did a double ablation and successful since then. No currently palpitations/chest pain/SOB Surgical History History of cardiac cath 02/2019 - [facility] - SVT/PAIN/DIAPHORETIC/FACIAL NUMBNESS - NO STENTS/ANGIOPLASTY History of colonoscopy Last one 06/10/21 History of D&C History of esophagogastroduodenoscopy (EGD) Last one 06/10/21 History of foot surgery HARDWARE PRESENT BL History of left knee replacement History of liver biopsy History of tooth extraction 4 implants put in on 07/01/21 History of total abdominal hysterectomy and bilateral salpingo-oophorectomy History of tubal ligation Hx of prior ablation treatment 2018- unsuccesful and 2020- successful S/P cataract surgery January 04 and 2020 Status post total right knee replacement 07/20/2020: right TKA [facility]: SAB at L4-L5, 2 attempts + PNB. No issues per anesthesia progress note. Family History Father Colonic polyp Uncle Colon cancer Social History Smoking Status: Never smoker Second Hand Exposure: No; Do You Dip or Chew Tobacco: No; Hx Alcohol Use: Yes Alcohol type: wine Hx Substance Use: No Preferred Language: Moldovan Communication Ability: Effective Diversional Therapist'S Assistant Required: No Beliefs That Will Affect Care: None Current Living Situation: Alone Other Information That Helps Us Care for You: No Feels Safe at Home: Yes Safety Concerns: Feels Safe At This Time Assistive Devices: None Allergies Allergies Allergy/AdvReac Type Severity Reaction Status Date / Time morphine Allergy Severe GI SYMPTOMS Verified 04/30/23 23:31 tobramycin Allergy Intermediate WORSENS Verified 04/30/23 23:31 EYE CONDITION AND SWELLING Penicillins Allergy Mild PURPLE Verified 04/30/23 23:31 SKIN AT HIGH DOSES Sulfa (Sulfonamide Allergy Mild PERIPHERAL Verified 04/30/23 23:31 Antibiotics) SWELLING nitrofurantoin Allergy Unknown CAN'T Verified 04/30/23 23:31 REMEMBER hydromorphone [From Dilaudid] AdvReac Mild Severe Verified 04/30/23 23:31 confusion vortioxetine AdvReac Unknown MOOD Verified 04/30/23 23:31 [From Brintellix] PROBLEMS, PAIN IN JOINTS Home Meds Home Medications Medication Instructions Recorded Confirmed Natural Supp 1 tab PO BID 04/30/23 aspirin 81 mg tablet,delayed 81 mg PO DAILY 04/30/23 04/30/23 release betamethasone, augmented 0.05 % 1 applic topical BID PRN .flare ups 04/30/23 04/30/23 topical cream biotin 1 mg tablet 1 mg PO DAILY 04/30/23 04/30/23 cetirizine 10 mg tablet 10 mg PO DAILY 04/30/23 04/30/23 cholecalciferol (vitamin D3) 50 100 mcg PO DAILY 04/30/23 04/30/23 mcg (2,000 unit) capsule (Vitamin D3) clindamycin HCl 300 mg capsule 600 mg PO UD 04/30/23 04/30/23 estradiol 1 mg tablet 1 mg PO QAM 04/30/23 04/30/23 fluoxetine 40 mg capsule 40 mg PO QAM 04/30/23 04/30/23 hydrochlorothiazide 12.5 mg capsule 12.5 mg PO .4DAYSWEEK 04/30/23 04/30/23 levothyroxine 175 mcg tablet 175 mcg PO DAILY 04/30/23 04/30/23 lisinopril 20 mg tablet 20 mg PO DAILY 04/30/23 04/30/23 multivitamin with minerals-folic 2 tab PO DAILY 04/30/23 04/30/23 acid 120 mcg chewable tablet (Adult Multivitamin Gummies) omeprazole 20 mg capsule,delayed 20 mg PO HS 04/30/23 04/30/23 release ursodiol 500 mg tablet 500 mg PO BID 04/30/23 04/30/23 Previous Rx's Medication Instructions Recorded apixaban 5 mg tablet (Eliquis) 5 mg PO BID #60 tabs 05/01/23 diltiazem HCl 240 mg 240 mg PO QAM #30 caps 05/01/23 capsule,extended release 24 hr Results & Data (ED) Vital Signs Vital Signs - 24 hr 04/30/23 21:48 04/30/23 21:48 04/30/23 22:01 Temperature 36.9 C Temperature Source Temporal Artery Scan Pulse Rate 129 H 131 H Pulse Rate from SpO2 Sensor Respiratory Rate 23 Respiratory Effort / Characteristics SOB on Exertion Blood Pressure 163/100 H Blood Pressure Mean 121 Pulse Oximetry 98 Oxygen Delivery Method Sepsis Recent Fever Within 48 Hours No Sepsis New/Unexplained Change in Mental Status N/A Sepsis Action Taken by Nursing No Action Required 04/30/23 22:03 04/30/23 22:20 04/30/23 22:30 Temperature Temperature Source Pulse Rate 128 H 130 H 127 H Pulse Rate from SpO2 Sensor 129 H 130 H 127 H Respiratory Rate 19 19 16 Respiratory Effort / Characteristics Blood Pressure 154/118 H 131/95 153/98 H Blood Pressure Mean 130 107 116 Pulse Oximetry 97 96 94 Oxygen Delivery Method Room Air Room Air Room Air Sepsis Recent Fever Within 48 Hours Sepsis New/Unexplained Change in Mental Status Sepsis Action Taken by Nursing 04/30/23 22:40 04/30/23 22:50 04/30/23 23:00 Temperature Temperature Source Pulse Rate 130 H 128 H 130 H Pulse Rate from SpO2 Sensor Respiratory Rate 13 13 13 Respiratory Effort / Characteristics Blood Pressure 149/98 H 151/101 H 162/108 H Blood Pressure Mean 108 108 141 Pulse Oximetry 96 96 98 Oxygen Delivery Method Sepsis Recent Fever Within 48 Hours Sepsis New/Unexplained Change in Mental Status Sepsis Action Taken by Nursing 04/30/23 23:15 04/30/23 23:20 Temperature Temperature Source Pulse Rate 131 H 131 H Pulse Rate from SpO2 Sensor Respiratory Rate 20 16 Respiratory Effort / Characteristics Blood Pressure 161/105 H 151/107 H Blood Pressure Mean 116 122 Pulse Oximetry 96 96 Oxygen Delivery Method Sepsis Recent Fever Within 48 Hours Sepsis New/Unexplained Change in Mental Status Sepsis Action Taken by [facility] Medications Current Medication List: was personally reviewed by in Laboratory Data Attestation: I reviewed the patient's lab results. 04/30/23 22:03 04/30/23 22:03 Lab Results 04/30/23 04/30/23 04/30/23 Range/Units 22:03 22:03 22:03 WBC 8.61 (4.8-10.8) K/ul RBC 4.70 (4.20-5.40) M/uL Hgb 13.5 (12.0-16.0) g/dl Hct 40.1 (37.0-47.0) % MCV 85.3 (80.0-100.0) fL MCH 28.7 (25.0-34.0) pg MCHC 33.7 (32.0-36.0) g/dL RDW Std Deviation 42.9 (36.4-46.3) fL RDW Coeff of Keri 13.6 (11.5-14.5) % Plt Count 302 (130-400) K/uL MPV 11.4 (9.4-12.4) fL Immature Gran % (Auto) 0.3 % Neut % (Auto) 53.0 % Lymph % (Auto) 33.7 % Brown % (Auto) 9.4 % Eos % (Auto) 3.0 % Baso % (Auto) 0.6 % Neut # (Auto) 4.56 (1.40-6.50) K/uL Lymph # (Auto) 2.90 (1.20-3.40) K/uL Brown # (Auto) 0.81 H (0.11-0.59) K/uL Eos # (Auto) 0.26 (0.00-0.50) K/uL Baso # (Auto) 0.05 (0.00-0.20) K/uL Immature Gran # (Auto) 0.03 (0.01-0.20) K/uL PT 9.9 (9.0-12.0) Seconds INR 0.9 (0.9-1.1) APTT 28.9 (21.0-31.0) Seconds PTT Ratio 1.0 Sodium 136 (136-145) mmol/L Potassium 3.6 (3.5-5.1) mmol/L Chloride 103 (98-107) mmol/L Carbon Dioxide 25 (21-32) mmol/L Anion Gap 8 (3-11) BUN 16 (6-23) mg/dl Creatinine 0.74 (0.6-1.2) mg/dl Est Cr Clr Drug Dosing 83.2 ml/min Est GFR ( Amer) 97.2 ml/min Est GFR (Non-Af Amer) 83.8 ml/min BUN/Creatinine Ratio 21.6 H (10-20) Glucose 100 H (70-99(Fasting)) mg/dl Calcium 9.5 (8.6-10.3) mg/dl Phosphorus 3.2 (2.5-4.9) mg/dl Magnesium 2.0 (1.7-2.4) mg/dl Total Bilirubin 0.4 (0.2-1.0) mg/dl AST 19 (13-39) U/L ALT 17 (7-52) U/L Alkaline Phosphatase 107 H (34-104) U/L Troponin I High Sens 4.1 (0-14) pg/ml Total Protein 7.7 (6.0-8.3) gm/dl Albumin 4.8 (3.4-5.0) gm/dl Globulin 2.9 (2.5-4.0) gm/dl Albumin/Globulin Ratio 1.7 (0.9-2) TSH 2.769 (0.300-4.500) uIu/ml Administered Medications Acetaminophen (Acetaminophen 325 Mg Tab) 650 mg PO Q4H PRN PRN Reason: Pain or Fever Stop: 05/31/23 01:22 Last Admin: 05/01/23 02:47 Dose: 650 mg Documented By: RAMÍREZ Aspirin (Aspirin 81 Mg Ectab) 81 mg PO DAILY [facility] Stop: 05/31/23 08:59 Last Admin: 05/01/23 09:01 Dose: 81 mg Documented By: HARI Cetirizine HCl (Cetirizine Hcl 10 Mg Tablet) 10 mg PO DAILY [facility] Stop: 05/31/23 08:59 Last Admin: 05/01/23 09:01 Dose: 10 mg Documented By: HARI Diltiazem HCl (Diltiazem Hcl 240 Mg Capcr) 240 mg PO QAM NADINE Stop: 05/31/23 13:59 Last Admin: 05/01/23 14:50 Dose: 240 mg Documented By: HARI Estradiol (Estradiol 1 Mg Tab) 1 mg PO QAM [facility] Stop: 05/31/23 08:59 Last Admin: 05/01/23 09:01 Dose: 1 mg Documented By: HARI Fluoxetine HCl (Fluoxetine Hcl 20 Mg Cap) 40 mg PO QAM [facility] Stop: 05/31/23 08:59 Last Admin: 05/01/23 09:01 Dose: 40 mg Documented By: HARI Hydrochlorothiazide (Hydrochlorothiazide 25 Mg Tab) 12.5 mg PO SuTuThSa@0900 [facility] Stop: 05/31/23 08:59 Last Admin: 05/01/23 09:00 Dose: 12.5 mg Documented By: HARI Heparin Sodium/Dextrose (Heparin Sodium/Dextrose) 25,000 units in 500 mls @ 26 mls/hr IV .[id number] [facility]; Protocol Stop: 05/30/23 23:29 Last Titration: 05/01/23 16:41 Dose: 0 units/hr, 0 mls/hr Documented By: HARI Co-signed By: AM Titration: 05/01/23 07:39 Dose: 1,300 units/hr, 26 mls/hr Documented By: HARI Co-signed By: NMS Titration: 05/01/23 07:02 Dose: 1,300 units/hr, 26 mls/hr Documented By: WANG Co-signed By: HARI Admin: 05/01/23 00:49 Dose: 1,300 units/hr, 26 mls/hr Documented By: MARGARITO Co-signed By: BERTA Levothyroxine Sodium (Levothyroxine Sodium 175 Mcg Tablet) [facility]: 05/31/23 06:29 Last Admin: 05/01/23 05:25 Dose: 175 mcg Documented By: WANG Lisinopril (Lisinopril 20 Mg Tab) 20 mg PO DAILY [facility] Stop: 05/31/23 08:59 Last Admin: 05/01/23 09:00 Dose: 20 mg Documented By: HARI Miscellaneous (Order Awaiting Action: Ursodiol 500 Mg Tablet) 1 each N/A QS [facility] Stop: 05/31/23 07:59 Last Admin: 05/01/23 09:00 Dose: Not Given Documented By: HARI Multivitamins/Folic Acid/Vitamin C (Multivitamin Chewable Tab) 1 tab PO DAILY [facility] Stop: 05/31/23 08:59 Last Admin: 05/01/23 09:00 Dose: 1 tab Documented By: HARI Vitamin D (Cholecalciferol 1,000 Units 25 Mcg Tab) 4,000 units PO DAILY [facility] Stop: 05/31/23 08:59 Last Admin: 05/01/23 09:00 Dose: 4,000 units Documented By: HARI Discontinued Medications Al Hydrox/Mg Hydrox/Simethicone (Aluminum/Magnesium/Simeth (Maalox Max) 30 Ml Udc) 30 ml PO NOW STA Stop: 05/01/23 05:14 Last Admin: 05/01/23 05:24 Dose: 30 ml Documented By: WANG Diltiazem HCl (Diltiazem Hcl 5 Mg/Ml 5 Ml Vial) 25 mg IV NOW STA Stop: 04/30/23 22:15 Last Admin: 04/30/23 22:20 Dose: 25 mg Documented By: MARGARITO Co-signed By: RAEGAN Heparin Sodium/Dextrose (Heparin Iv Adult Wt-Based Standard *No* Bolus Protocol) 1 each IV ONE ONE; Protocol Stop: 04/30/23 23:10 Last Admin: 05/01/23 00:45 Dose: Not Given Documented By: MARGARITO Sodium Chloride (Nss) 500 mls @ 999 mls/hr IV .Q31M STA Stop: 04/30/23 22:44 Last Infusion: 04/30/23 23:12 Dose: 0 mls/hr Documented By: Admin: 04/30/23 22:20 Dose: 999 mls/hr Documented By: MARGARITO Diltiazem HCl 125 mg/ Dextrose 125 mls @ 15 mls/hr IV .Q8H20M NADINE; Protocol Stop: 05/30/23 23:14 Last Titration: 05/01/23 14:00 Dose: 0 mg/hr, 0 mls/hr Documented By: ARLENE Co-signed By: BRE Admin: 05/01/23 10:01 Dose: 15 mg/hr, 15 mls/hr Documented By: HARI Co-signed By: EVELIO Titration: 05/01/23 09:40 Dose: 15 mg/hr, 15 mls/hr Documented By: HARI Co-signed By: EVELIO Titration: 05/01/23 07:02 Dose: 15 mg/hr, 15 mls/hr Documented By: WANG Co-signed By: HARI Titration: 05/01/23 02:29 Dose: 15 mg/hr, 15 mls/hr Documented By: WANG Co-signed By: AM(2) Titration: 05/01/23 01:28 Dose: 10 mg/hr, 10 mls/hr Documented By: AWNG Co-signed By: WANDY Admin: 05/01/23 00:03 Dose: 5 mg/hr, 5 mls/hr Documented By: MARGARITO Co-signed By: BUBBA Influenza Virus Vaccine (Influenza Vaccine High-Dose (Hd-Iiv4) Pf 65+ 0.7ml Syr) 0.7 ml IM .ONCE ONE Stop: 05/01/23 09:01 Last Admin: 05/01/23 14:50 Dose: Not Given Documented By: HARI Imaging Data Radiologist's Impression: Chest X-Ray 04/30/23 21:55 SINGLE VIEW CHEST CLINICAL HISTORY: Atypical chest pain. FINDINGS: An AP, portable, upright chest radiograph is compared to study dated 07/12/2021. The cardiomediastinal silhouette is unremarkable. There is mild bibasilar atelectasis. The lungs and pleural spaces are otherwise clear. No pneumothorax is seen. The skeletal structures are osteopenic. The bony thorax is grossly intact. IMPRESSION: No acute cardiopulmonary abnormality. ACT 112: Negative or not required by law. Electronically signed by: Jerome Liz M.D. 05/01/2023 6:47 AM Discharge Plan Visit Data Chief Complaint: Tachycardia Stated Complaint: HYPERTENSION, TACHYCARDIA ED Provider: Giovany Tirado Discharge Problem: Atrial flutter with rapid ventricular response Patient Disposition: Admitted As Inpatient Discharge Instructions Interventions: ED Discharge Assessment Last Done: 05/01/23 01:02
[2023-04-30 22:26] LABS: Basophils # (auto) 0.05 K/uL (0.00-0.20); Basophils % (auto) 0.6 %; Eosinophils # (auto) 0.26 K/uL (0.00-0.50); Hematocrit (blood only) 40.1 % (37.0-47.0); Hemoglobin 13.5 g/dl (12.0-16.0); Immature Granulocytes # (auto) 0.03 K/uL (0.01-0.20); Immature Granulocytes % (auto) 0.3 %; Lymphocytes % (auto) 33.7 %; Mean Corpuscular Hemoglobin 28.7 pg (25.0-34.0); Mean Corpuscular Hgb Conc 33.7 g/dL (32.0-36.0); Mean Corpuscular Volume 85.3 fL (80.0-100.0); Mean Platelet Volume 11.4 fL (9.4-12.4); Monocytes # (auto) 0.81 K/uL (0.11-0.59); Monocytes % (auto) 9.4 %; Neutrophils # (auto) 4.56 K/uL (1.40-6.50); Platelet Count 302 K/uL (130-400); RDW Coefficient of Variation 13.6 % (11.5-14.5); RDW Standard Deviation 42.9 fL (36.4-46.3); White Blood Count 8.61 K/ul (4.8-10.8)
[2023-04-30 22:44] LABS: Albumin Globulin Ratio 1.7 (0.9-2); Albumin Level 4.8 gm/dl (3.4-5.0); BUN Creatinine Ratio 21.6 (10-20); Bilirubin,Total 0.4 mg/dl (0.2-1.0); Calcium 9.5 mg/dl (8.6-10.3); Creatinine Clr Calc Pharmacy 83.2 ml/min; Est GFR (African American) 97.2 ml/min; Est GFR (Non-African American) 83.8 ml/min; Globulin 2.9 gm/dl (2.5-4.0); Phosphorus 3.2 mg/dl (2.5-4.9); Potassium 3.6 mmol/L (3.5-5.1); Total Protein 7.7 gm/dl (6.0-8.3)
[2023-04-30 22:56] LABS: INR 0.9 (0.9-1.1); Partial Thromboplastin Time 28.9 Seconds (21.0-31.0); Prothrombin Time 9.9 Seconds (9.0-12.0)
[2023-04-30] MEDS ORDERED: STAT IV Infusion **Titration per Protocol STA (23:08)
[2023-04-30] MEDS ORDERED: Heparin IV Adult Wt-Based Standard *NO* Bolus Protocol IV ONE (23:09)
[2023-04-30] MEDS ORDERED: HEPARIN SODIUM/DEXTROSE 25,000 UNITS/500 ML BAG IV SCH (23:30)
[2023-05-01] MEDS: dilTIAZem HCL 125 MG in DEXTROSE 5% 100 ML IV SCH ×2 (00:03→10:01)
[2023-05-01 00:08] LABS: Troponin I High Sensitivity 4.1 pg/ml (0-14)
[2023-05-01 00:17] LABS: Thyroid Stimulating Hormone 2.769 uIu/ml (0.300-4.500)
--- NOTE | 2023-05-01 00:34 | History & Physical Report ---
Date of Service May 01, 2023 Assessment & Plan (1) Atrial flutter with rapid ventricular response: Plan: 67-year-old female with past medical significant for hypothyroidism, hyperlipidemia, allergic rhinitis, pulmonary nodules, hypertension, hepatic hemangioma, and incomplete right bundle branch block, history of sinus bradycardia, primary biliary sclerosis, GERD, migraines, psoriasis, presents with palpitations and found to have a flutter. A flutter with rapid ventricular response On Cardizem drip which will be continued IV heparin History of hemorrhoid bleed, we will monitor We will follow serial cardiac enzymes and echo Telemetry floor Consult cardiology for further recommendations History of SVTs S/p ablation Could not tolerate Lopressor which caused fatigue and depression On p.o. 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 DVT prophylaxis IV heparin Disposition telemetry floor Full code History of Present Illness Chief Complaint: Rapid a flutter Primary Care Provider: Marci Rock PA-C 67-year-old female with past medical significant for hypothyroidism, hyperlipidemia, allergic rhinitis, pulmonary nodules, hypertension, hepatic hemangioma, and incomplete right bundle branch block, history of sinus bradycardia, primary biliary sclerosis, GERD, migraines, psoriasis, presents with palpitations and found to have a flutter. Patient has history of SVT. Patient is s/p ablation in October 2020 at [facility] for SVT and focal atrial tachycardia. Prior to ablation she was taking flecainide and stopped after ablation. Patient's has [place] disease and is in [facility] and she visits him daily. Last couple of weeks she is feeling on and off palpitations. Her daughter is a doctor and advised her to come to the ER. Denies any chest pain. But lately she is feeling short of breath. Denies any dizziness. Having on and off blurred visions. No runny nose or sore throat or cough. No fevers. Appetite is good. No nausea. No abdominal pain. Bowel movements are irregular and today she had diarrhea 4 times. She has hemorrhoids and sometimes they bleed. Today she was micturating a lot. No hematuria. States she has some swelling of the feet yesterday but that resolved today. Past medical history as mentioned above Past surgical history. Bunion correction. Colonoscopy. EGD. EGD with biopsy. EGD with endoscopic ultrasound. Liver biopsy. Heart catheterization. Cataracts. Total hysterectomy. Heart ablation. Social history. quit smoking in 2000. 7 glasses of wine weekly. No drug use. Family history. Father has dementia. Mother in childbirth. Paternal grandfather had leukemia. Sister had stroke and pulmonary hypertension. Paternal aunt had breast cancer. Allergies Allergy/AdvReac Type Severity Reaction Status Date / Time morphine Allergy Severe GI SYMPTOMS Verified 04/30/23 23:31 tobramycin Allergy Intermediate WORSENS Verified 04/30/23 23:31 EYE CONDITION AND SWELLING Penicillins Allergy Mild PURPLE Verified 04/30/23 23:31 SKIN AT HIGH DOSES Sulfa (Sulfonamide Allergy Mild PERIPHERAL Verified 04/30/23 23:31 Antibiotics) SWELLING nitrofurantoin Allergy Unknown CAN'T Verified 04/30/23 23:31 REMEMBER hydromorphone [From Dilaudid] AdvReac Mild Severe Verified 04/30/23 23:31 confusion vortioxetine AdvReac Unknown MOOD Verified 04/30/23 23:31 [From Brintellix] PROBLEMS, PAIN IN JOINTS Home Medications Medication Instructions Recorded Confirmed Type Natural Supp 1 tab PO BID 04/30/23 History aspirin 81 mg tablet,delayed 81 mg PO DAILY 04/30/23 04/30/23 History release betamethasone, augmented 0.05 % 1 applic topical BID PRN .flare ups 04/30/23 04/30/23 History topical cream biotin 1 mg tablet 1 mg PO DAILY 04/30/23 04/30/23 History cetirizine 10 mg tablet 10 mg PO DAILY 04/30/23 04/30/23 History cholecalciferol (vitamin D3) 50 100 mcg PO DAILY 04/30/23 04/30/23 History mcg (2,000 unit) capsule (Vitamin D3) clindamycin HCl 300 mg capsule 600 mg PO UD 04/30/23 04/30/23 History diltiazem HCl 180 mg 180 mg PO DAILY 04/30/23 04/30/23 History capsule,extended release 24 hr estradiol 1 mg tablet 1 mg PO QAM 04/30/23 04/30/23 History fluoxetine 40 mg capsule 40 mg PO QAM 04/30/23 04/30/23 History hydrochlorothiazide 12.5 mg capsule 12.5 mg PO .4DAYSWEEK 04/30/23 04/30/23 History levothyroxine 175 mcg tablet 175 mcg PO DAILY 04/30/23 04/30/23 History lisinopril 20 mg tablet 20 mg PO DAILY 04/30/23 04/30/23 History multivitamin with minerals-folic 2 tab PO DAILY 04/30/23 04/30/23 History acid 120 mcg chewable tablet (Adult Multivitamin Gummies) omeprazole 20 mg capsule,delayed 20 mg PO HS 04/30/23 04/30/23 History release ursodiol 500 mg tablet 500 mg PO BID 04/30/23 04/30/23 History Past Med/Surg History Medical History Anxiety Autoimmune hepatitis (02/11/13) Bilateral primary osteoarthritis of knee Chronic back pain Degenerative disc disease Depression Esophageal spasm GERD (gastroesophageal reflux disease) History of cluster headache History of malignant neoplasm of esophagus Hypertension Hypothyroidism Incomplete RBBB Lumbar spondylosis Lumbar spondylosis Osteoarthritis Primary biliary cirrhosis Psoriasis SVT (supraventricular tachycardia) Surgical History History of cardiac cath History of colonoscopy History of D&C History of esophagogastroduodenoscopy (EGD) History of foot surgery History of left knee replacement History of liver biopsy History of tooth extraction History of total abdominal hysterectomy and bilateral salpingo-oophorectomy History of tubal ligation Hx of prior ablation treatment S/P cataract surgery Status post total right knee replacement Family History Father Colonic polyp Uncle Colon cancer Social History Smoking Status: Never smoker Second Hand Exposure: No; Do You Dip or Chew Tobacco: No; Hx Alcohol Use: Yes Alcohol type: wine Hx Substance Use: No Preferred Language: Luxembourger Communication Ability: Effective Supervisor Maintenance Required: No Beliefs That Will Affect Care: None Current Living Situation: Alone Other Information That Helps Us Care for You: No Feels Safe at Home: Yes Safety Concerns: Feels Safe At This Time Assistive Devices: None Review of Systems Review of Systems: All systems reviewed & are unremarkable except as noted in HPI & below Physical Exam Physical Exam: General- Not in distress Head- atraumatic Eyes- PERRL. ENT- oropharynx clear Neck- supple, no JVD. Lungs- clear to auscultation no wheezing or crackles. Heart- irregular rhythm; Tachycardia, no murmur, no gallop. Abdomen- normal bowel sounds, soft, nontender, no distension. Extremities- no pretibial edema, no erythea seen Neuro- alert, oriented x 3; PERRL,; no facial palsy; no dysarthria; Non focal. Skin- warm & dry Results & Data Results & Data Vital Signs (Past 12 Hours) Vital Signs Temp Pulse Resp BP Pulse Ox O2 Del Method 04/30/23 23:20 131 H 16 151/107 H 96 04/30/23 23:15 131 H 20 161/105 H 96 04/30/23 23:00 130 H 13 162/108 H 98 04/30/23 22:50 128 H 13 151/101 H 96 04/30/23 22:40 130 H 13 149/98 H 96 04/30/23 22:30 127 H 16 153/98 H 94 Room Air 04/30/23 22:20 130 H 19 131/95 96 Room Air 04/30/23 22:03 128 H 19 154/118 H 97 Room Air 04/30/23 22:01 131 H 04/30/23 21:48 36.9 C 129 H 23 163/100 H 98 Diagnostic Findings Laboratory Results WBC 8.61 K/ul (4.8-10.8) 04/30/23 22:03 RBC 4.70 M/uL (4.20-5.40) 04/30/23 22:03 Hgb 13.5 g/dl (12.0-16.0) 04/30/23 22:03 Hct 40.1 % (37.0-47.0) 04/30/23 22:03 MCV 85.3 fL (80.0-100.0) 04/30/23 22:03 MCH 28.7 pg (25.0-34.0) 04/30/23 22:03 MCHC 33.7 g/dL (32.0-36.0) 04/30/23 22:03 RDW Std Deviation 42.9 fL (36.4-46.3) 04/30/23 22: RDW Coeff of Keri 13.6 % (11.5-14.5) 04/30/23 22: Plt Count 302 K/uL (130-400) 04/30/23 22:03 MPV 11.4 fL (9.4-12.4) 04/30/23 22: Immature Gran % (Auto) 0.3 % 04/30/23 22: Neut % (Auto) 53.0 % 04/30/23 22:03 Lymph % (Auto) 33.7 % 04/30/23 22:03 Becker % (Auto) 9.4 % 04/30/23 22:03 Eos % (Auto) 3.0 % 04/30/23: Baso % (Auto) 0.6 % 04/30/23 22:03 Neut # (Auto) 4.56 K/uL (1.40-6.50) 04/30/23 22: Lymph # (Auto) 2.90 K/uL (1.20-3.40) 04/30/23 22:03 Becker # (Auto) 0.81 K/uL (0.11-0.59) H 04/30/23 22:03 Eos # (Auto) 0.26 K/uL (0.00-0.50) 04/30/23 22:03 Baso # (Auto) 0.05 K/uL (0.00-0.20) 04/30/23 22: Immature Gran # (Auto) 0.03 K/uL (0.01-0.20) 04/30/23 22: PT 9.9 Seconds (9.0-12.0) 04/30/23 22:03 INR 0.9 (0.9-1.1) 04/30/23 22:03 APTT 28.9 Seconds (21.0-31.0) 04/30/23 22: PTT Ratio 1.0 04/30/23 22:03 Sodium 136 mmol/L (136-145) 04/30/23 22:03 Potassium 3.6 mmol/L (3.5-5.1) 04/30/23 22: Chloride 103 mmol/L (98-107) 04/30/23 22:03 Carbon Dioxide 25 mmol/L (21-32) 04/30/23 22:03 Anion Gap 8 (3-11) 04/30/23 22:03 BUN 16 mg/dl (6-23) 04/30/23 22:03 Creatinine 0.74 mg/dl (0.6-1.2) 04/30/23 22:03 Est Cr Clr Drug Dosing 83.2 ml/min 04/30/23 22:03 Est GFR ( Amer) 97.2 ml/min 04/30/23 22:03 Est GFR (Non-Af Amer) 83.8 ml/min 04/30/23 22:03 BUN/Creatinine Ratio 21.6 (10-20) H 04/30/23 22:03 Glucose 100 mg/dl (70-99(Fasting)) H 04/30/23 22:03 Calcium 9.5 mg/dl (8.6-10.3) 04/30/23 22:03 Phosphorus 3.2 mg/dl (2.5-4.9) 04/30/23 22:03 Magnesium 2.0 mg/dl (1.7-2.4) 04/30/23 22:03 Total Bilirubin 0.4 mg/dl (0.2-1.0) 04/30/23 22:03 AST 19 U/L (13-39) 04/30/23 22:03 ALT 17 U/L (7-52) 04/30/23 22:03 Alkaline Phosphatase 107 U/L (34-104) H 04/30/23 22:03 Troponin I High Sens 4.1 pg/ml (0-14) 04/30/23 22:03 Total Protein 7.7 gm/dl (6.0-8.3) 04/30/23 22:03 Albumin 4.8 gm/dl (3.4-5.0) 04/30/23 22:03 Globulin 2.9 gm/dl (2.5-4.0) 04/30/23 22:03 Albumin/Globulin Ratio 1.7 (0.9-2) 04/30/23 22:03 TSH 2.769 uIu/ml (0.300-4.500) 04/30/23 22:03 ECG Additional Comments: ECG atrial flutter with 2 is to 1 AV conduction at a rate of 133. Nonspecific ST abnormality. ST depression in inferior leads and anterior lateral leads Code Status & VTE Plan VTE Prophylaxis Plan VTE Prophylaxis will be ordered: Yes
[2023-05-01] MEDS ORDERED: BETAMETHASONE DIP AUG (DIPROLENE) 0.05% CR 15 GM TUBE EXT PRN (01:23)
[2023-05-01] MEDS ORDERED: NITROGLYCERIN SL 0.4 MG/TAB TAB SL PRN (01:23)
[2023-05-01] MEDS ORDERED: ACETAMINOPHEN 325 MG TAB PO PRN (01:23)
[2023-05-01] MEDS ORDERED: POLYETHYLENE (MIRALAX) 17 GM PACK PO PRN (01:23)
[2023-05-01] MEDS ORDERED: ALUMINUM/MAGNESIUM/SIMETH (MAALOX MAX) 30 ML UDC PO STA (05:13)
[2023-05-01] MEDS ORDERED: LEVOTHYROXINE SODIUM 175 MCG TABLET PO SCH (06:30)
[2023-05-01 06:31] LABS: Basophils # (auto) 0.04 K/uL (0.00-0.20); Basophils % (auto) 0.6 %; Eosinophils # (auto) 0.09 K/uL (0.00-0.50); Eosinophils % (auto) 1.3 %; Hemoglobin 12.2 g/dl (12.0-16.0); Immature Granulocytes # (auto) 0.02 K/uL (0.01-0.20); Immature Granulocytes % (auto) 0.3 %; Lymphocytes # (auto) 1.85 K/uL (1.20-3.40); Lymphocytes % (auto) 26.1 %; Mean Corpuscular Hemoglobin 28.6 pg (25.0-34.0); Mean Corpuscular Hgb Conc 33.9 g/dL (32.0-36.0); Mean Corpuscular Volume 84.3 fL (80.0-100.0); Mean Platelet Volume 11.7 fL (9.4-12.4); Monocytes # (auto) 0.65 K/uL (0.11-0.59); Monocytes % (auto) 9.2 %; Neutrophils # (auto) 4.44 K/uL (1.40-6.50); Neutrophils % (auto) 62.5 %; Platelet Count 268 K/uL (130-400); RDW Coefficient of Variation 13.7 % (11.5-14.5); RDW Standard Deviation 42.5 fL (36.4-46.3); Red Blood Count 4.27 M/uL (4.20-5.40); White Blood Count 7.09 K/ul (4.8-10.8)
[2023-05-01 06:48] LABS: BUN Creatinine Ratio 15.9 (10-20); Calcium 8.6 mg/dl (8.6-10.3); Creatinine Clr Calc Pharmacy 89.3 ml/min; Est GFR (African American) 104.4 ml/min; Est GFR (Non-African American) 90.1 ml/min; Magnesium 1.8 mg/dl (1.7-2.4); Potassium 3.8 mmol/L (3.5-5.1)
--- NOTE | 2023-05-01 06:48 | XRay Report ---
SINGLE VIEW CHEST CLINICAL HISTORY: Atypical chest pain. FINDINGS: An AP, portable, upright chest radiograph is compared to study dated 07/12/2021. The cardio mediastinal silhouette is unremarkable. There is mild bibasilar atelectasis. The lungs and pleural sp aces are otherwise clear. No pneumothorax is seen. The skeletal structures are osteopenic. The bony t horax is grossly intact. IMPRESSION: No acute cardiopulmonary abnormality. ACT 112: Negative or not required by law. Electronically signed by: Jerome Liz M.D. 05/01/2023 6:47 AM
[2023-05-01 07:03] LABS: Troponin I High Sensitivity 8.8 pg/ml (0-14)
[2023-05-01 07:16] LABS: Partial Thromboplastin Ratio 1.6
[2023-05-01 07:37] LABS: Partial Thromboplastin Time 45.8 Seconds (21.0-31.0)
[2023-05-01] MEDS ORDERED: FLUoxetine HCL 20 MG CAP PO SCH (09:00)
[2023-05-01] MEDS ORDERED: MULTIVITAMIN CHEWABLE TAB PO SCH (09:00)
[2023-05-01] MEDS ORDERED: estradioL 1 MG TAB PO SCH (09:00)
[2023-05-01] MEDS ORDERED: hydroCHLOROthiazide 25 MG TAB PO SCH (09:00)
[2023-05-01] MEDS ORDERED: ASPIRIN 81 MG ECTAB PO SCH (09:00)
[2023-05-01] MEDS ORDERED: CHOLECALCIFEROL 1,000 UNITS 25 MCG TAB PO SCH (09:00)
[2023-05-01] MEDS ORDERED: CETIRIZINE HCL 10 MG TABLET PO SCH (09:00)
[2023-05-01] MEDS ORDERED: lisinopril 20 MG TAB PO SCH (09:00)
[2023-05-01] MEDS ORDERED: INFLUENZA VACCINE HIGH-DOSE (HD-IIV4) PF 65+ 0.7mL SYR IM ONE (09:00)
--- NOTE | 2023-05-01 09:41 | Cardiology Consultation ---
Date of Consultation May 01, 2023 Assessment & Plan (1) Atrial flutter with rapid ventricular response: (2) Paroxysmal supraventricular tachycardia: (3) Palpitations: (4) Hypertension: Plan Await resting echocardiography NPO for possible FLORENTIN guided cardioversion IV heparin to Eliquis anticoagulation, 5 mg twice a day. Probable resumption of prior to arrival Diltiazem ER 180 mg/day on discharge Patient with past poor tolerance to beta-esthela therapy Outpatient Electrophysiology follow-up at [facility] Stress management. Supervising Physician Co-Signing Physician Notes 67-year-old female presents to the emergency department with palpitations. Persistent tachycardia and irregular heartbeat since approximately 1 AM last night. Multiple drug intolerances noted. Denies chest discomfort, lightheadedness, syncope, or near syncope. PE: General: NAD, awake alert and oriented x3. Heart: Irregular rhythm, tachycardic, normal S1-S2. No murmur. Lungs: Clear bilateral, no rales, rhonchi, wheeze. Extremities: No edema. A/P: Agree with above PA-C history, physical exam, assessment and plan. Continue IV heparin and intravenous diltiazem infusion. Risk, benefits, alternatives to transesophageal echo guided cardioversion discussed. Patient agreeable to proceed. If cardioversion is unsuccessful, recommend electrophysiology consultation to consider ablation. Transition patient from IV heparin to oral Eliquis post cardioversion. History of Present Illness Reason for Consultation: Atrial flutter Requesting Physician: Dr. Dahl Attending Physician: Dr. Traylor History of Present Illness Mrs. Cecille Rider is a very pleasant 67-year-old female who was last seen in the cardiology office by Maryjo Rawls on 04/20/2023. EKG at that time revealed normal sinus rhythm at 66 bpm with a QTc interval of 429 ms, unchanged compared to prior tracing. Although not mentioned at that office visit on April 20, 2023, patient has been having periods of irregular heartbeat they have increased of late, appearing to be in association with increased stressors at work as well as at home, Bran is at [facility] with [place] Disease. Mrs. Rider notes "running on empty." This past she babysat her 4-month-old granddaughter Jennie who was up multiple times throughout the night. When she returned home Len[place] afternoon she had short episodes of palpitations off an on however last evening, when out at [facility], around 7:30 PM she noticed that her heart was "really pounding" and her FitBit read rapid heart rates that "leveled off" at 130 bpm. EKG on presentation to the [facility] ER (04/30/2023 @21:58:28) revealed atrial flutter with 2-1 conduction, ventricular rate 133 bpm with diffuse nonspecific ST abnormality, QTc 479 ms. 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 Prior to arrival diltiazem 180 mg/day was held on admission. EKG obtained on 04/30/2023 at 22:01:22 revealed atrial flutter with 2-1 conduction, ventricular rate of 131 bpm with nonspecific interventricular conduction block, diffuse STT wave abnormality. EKG this morning 05/01/2023 at 05:11:00 revealed atrial flutter with variable block, diffuse ST abnormality, QTc 495 ms. High-sensitivity troponin I 4.1 pg/mL then 8.8 pg/mL. Potassium was low normal at 3.6 mmol/L on presentation Magnesium was normal at 2.0 mg/dL TSH was normal at 2.769. Creatinine normal at 0.74 mg/dL White blood cell count was normal at 8.61. H&H were normal at 13.5 and 40.1. Platelet count was normal at 302 K Calcium was normal at 9.5 mg/dL Chest x-ray showed no acute cardiopulmonary abnormality Resting echocardiography completed just prior to my evaluation, pending interpretation Past Medical and Surgical History: Patient is documented to occur in association with sinus rhythm, ventricular ectopy, sinus tachycardia, PSVT Status post March 2019 electrophysiology study with inducible PAT unable to be mapped Status post November 22, [address] Robert Toussaint at 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 Father with dementia. Paternal grandfather in his 70's with leukemia. Brother with HTN and unknown arrhythmia. Aunt with ? sudden cardiac at 65. Sister with CVA at 53 and pulmonary hypertension. Social History: Nonsmoker. Alcohol: One glass of wine with dinner. No illegal/illicit drug use. , with [place]'s disease, assisted living at [facility] in [place]. 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 Two children; daughter Wanda is a PA-C who graduated in 2010 from [employer] and is currently working in ER's in the [facility] [facility]. Daughter Hiral is a hotel or motel room service supervisor locally. Allergies Allergy/AdvReac Type Severity Reaction Status Date / Time morphine Allergy Severe GI SYMPTOMS Verified 04/30/23 23:31 tobramycin Allergy Intermediate WORSENS Verified 04/30/23 23:31 EYE CONDITION AND SWELLING Penicillins Allergy Mild PURPLE Verified 04/30/23 23:31 SKIN AT HIGH DOSES Sulfa (Sulfonamide Allergy Mild PERIPHERAL Verified 04/30/23 23:31 Antibiotics) SWELLING nitrofurantoin Allergy Unknown CAN'T Verified 04/30/23 23:31 REMEMBER hydromorphone [From Dilaudid] AdvReac Mild Severe Verified 04/30/23 23:31 confusion vortioxetine AdvReac Unknown MOOD Verified 04/30/23 23:31 [From Brintellix] PROBLEMS, PAIN IN JOINTS Home Medications Medication Instructions Recorded Confirmed Type Natural Supp 1 tab PO BID 04/30/23 History aspirin 81 mg tablet,delayed 81 mg PO DAILY 04/30/23 04/30/23 History release betamethasone, augmented 0.05 % 1 applic topical BID PRN .flare ups 04/30/23 04/30/23 History topical cream biotin 1 mg tablet 1 mg PO DAILY 04/30/23 04/30/23 History cetirizine 10 mg tablet 10 mg PO DAILY 04/30/23 04/30/23 History cholecalciferol (vitamin D3) 50 100 mcg PO DAILY 04/30/23 04/30/23 History mcg (2,000 unit) capsule (Vitamin D3) clindamycin HCl 300 mg capsule 600 mg PO UD 04/30/23 04/30/23 History diltiazem HCl 180 mg 180 mg PO DAILY 04/30/23 04/30/23 History capsule,extended release 24 hr estradiol 1 mg tablet 1 mg PO QAM 04/30/23 04/30/23 History fluoxetine 40 mg capsule 40 mg PO QAM 04/30/23 04/30/23 History hydrochlorothiazide 12.5 mg capsule 12.5 mg PO .4DAYSWEEK 04/30/23 04/30/23 History levothyroxine 175 mcg tablet 175 mcg PO DAILY 04/30/23 04/30/23 History lisinopril 20 mg tablet 20 mg PO DAILY 04/30/23 04/30/23 History multivitamin with minerals-folic 2 tab PO DAILY 04/30/23 04/30/23 History acid 120 mcg chewable tablet (Adult Multivitamin Gummies) omeprazole 20 mg capsule,delayed 20 mg PO HS 04/30/23 04/30/23 History release ursodiol 500 mg tablet 500 mg PO BID 04/30/23 04/30/23 History Patient History Medical History Anxiety Autoimmune hepatitis (02/11/13) FOLLOWS W/ DR. 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 Hypertension Decreased since SVT has stopped Hypothyroidism Incomplete RBBB follows with [facility] Lumbar spondylosis Lumbar spondylosis Osteoarthritis severe Primary biliary cirrhosis FOLLOWS W/ DR. JOSEPH Psoriasis SVT (supraventricular tachycardia) DX 2019 years ago - Follows w/ Raymundo Howell. S/p unsuccessful ablation 02/2019. November 22, 2020 - repeat ablation done at [facility] - did a double ablation and successful since then. 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 No issues per anesthesia progress note. Family History Father Colonic polyp Uncle Colon cancer Social History Smoking Status: Never smoker Second Hand Exposure: No; Do You Dip or Chew Tobacco: No; Hx Alcohol Use: Yes Alcohol type: wine Hx Substance Use: No Preferred Language: Tunisian Communication Ability: Effective Process Worker Required: No Beliefs That Will Affect Care: None Current Living Situation: Alone Other Information That Helps Us Care for You: No Feels Safe at Home: Yes Safety Concerns: Feels Safe At This Time Assistive Devices: None Review of Systems Review of Systems: Complete Review of Systems: Increased stress Occasional headaches in the morning Prior sleep evaluation was negative Sinus issues Increased shortness of breath Intermittent blurred vision Irregular bowel movements Increased urination, without dysuria or hematuria Chronic hemorrhoidal bleeding without constipation Taking biotin for hair and nails Taking turmeric with some other things to help arthritic pain Chronic back pain Complete Review of Systems is as stated above, negative, or noncontributory. Physical Exam Physical Exam: General: A&Ox3. HENT: Normocephalic. Atraumatic. Eyes: PER. Conjunctiva pink, sclera clear. Neck: No carotid bruits. No overt JVD. Heart: Regular at 120 bpm. No murmur. No rubs. Lungs: Clear to auscultation. Abdomen: +BS. Soft. Nontender. Extremities: No edema. No clubbing. No cyanosis. Limited neurological examination is without focal deficits. Pulses: radial=2/4, posterior tibial=2/4, dorsalis pedis=2/4. Results & Data Vital Signs (Past 12 Hours) Vital Signs Temp Pulse Pulse Resp BP BP Pulse Ox 05/01/23 08:00 05/01/23 07:32 36.6 C 66 18 122/56 L 99 05/01/23 07:00 96 H 05/01/23 06:24 67 109/69 05/01/23 05:43 96 H 107/74 05/01/23 04:40 79 108/63 05/01/23 03:30 107 H 104/60 05/01/23 02:25 136 H 122/56 L 05/01/23 01:20 05/01/23 01:30 132 H 05/01/23 01:38 36.6 C 136 H 20 151/87 H 94 05/01/23 01:26 131 H 158/90 H 05/01/23 01:02 134 H 12 129/88 98 04/30/23 23:20 131 H 16 151/107 H 96 04/30/23 23:15 131 H 20 161/105 H 96 04/30/23 23:00 130 H 13 162/108 H 98 04/30/23 22:50 128 H 13 151/101 H 96 04/30/23 22:40 130 H 13 149/98 H 96 04/30/23 22:30 127 H 16 153/98 H 94 04/30/23 22:20 130 H 19 131/95 96 04/30/23 22:03 128 H 19 154/118 H 97 04/30/23 22:01 131 H 04/30/23 21:48 36.9 C 129 H 23 163/100 H 98 O2 Del Method 05/01/23 08:00 Room Air 05/01/23 07:32 Room Air 05/01/23 07:00 05/01/23 06:24 05/01/23 05:43 05/01/23 04:40 05/01/23 03:30 05/01/23 02:25 05/01/23 01:20 Room Air 05/01/23 01:30 05/01/23 01:38 Room Air 05/01/23 01:26 05/01/23 01:02 Room Air 04/30/23 23:20 04/30/23 23:15 04/30/23 23:00 04/30/23 22:50 04/30/23 22:40 04/30/23 22:30 Room Air 04/30/23 22:20 Room Air 04/30/23 22:03 Room Air 04/30/23 22:01 04/30/23 21:48 Laboratory Results Cardiac Enzymes 04/30/23 05/01/23 Range/Units 22:03 05:18 AST 19 (13-39) U/L Troponin I High Sens 4.1 8.8 D (0-14) pg/ml Coagulation 04/30/23 05/01/23 Range/Units 22:03 05:18 PT 9.9 (9.0-12.0) Seconds APTT 28.9 45.8 H* (21.0-31.0) Seconds CBC 04/30/23 05/01/23 Range/Units 22:03 05:18 WBC 8.61 7.09 (4.8-10.8) K/ul RBC 4.70 4.27 (4.20-5.40) M/uL Hgb 13.5 12.2 (12.0-16.0) g/dl Hct 40.1 36.0 L (37.0-47.0) % Plt Count 302 268 (130-400) K/uL Neut # (Auto) 4.56 4.44 (1.40-6.50) K/uL Lymph # (Auto) 2.90 1.85 (1.20-3.40) K/uL [place] # (Auto) 0.81 H 0.65 H (0.11-0.59) K/uL Eos # (Auto) 0.26 0.09 (0.00-0.50) K/uL Baso # (Auto) 0.05 0.04 (0.00-0.20) K/uL Comprehensive Metabolic Panel 04/30/23 05/01/23 Range/Units 22:03 05:18 Sodium 136 140 (136-145) mmol/L Potassium 3.6 3.8 (3.5-5.1) mmol/L Chloride 103 107 (98-107) mmol/L Carbon Dioxide 25 26 (21-32) mmol/L BUN 16 11 (6-23) mg/dl Creatinine 0.74 0.69 (0.6-1.2) mg/dl Glucose 100 H 117 H (70-99(Fasting)) mg/dl Calcium 9.5 8.6 (8.6-10.3) mg/dl AST 19 (13-39) U/L ALT 17 (7-52) U/L Alkaline Phosphatase 107 H (34-104) U/L Total Protein 7.7 (6.0-8.3) gm/dl Albumin 4.8 (3.4-5.0) gm/dl Intake and Output 04/30/23 05/01/23 05/01/23 22:59 06:59 14:59 Intake Total 517.250 / 517.250 245.916 / 245.916 Balance 517.250 / 517.250 245.916 / 245.916 Intake: IV 517.250 / 517.250 245.916 / 245.916 Heparin Sodium/Dextrose 25,000 177.666 / 177.666 units In 500 ml @ 1,300 UNITS/ HR 26 mls/hr IV .[id number] [facility] Rx #:[id number] Sodium Chloride 0.9% 500 ml @ 500 / 500 999 mls/hr IV .Q31M [facility] Rx#: [id number] dilTIAZem HCL 125 mg In 17.250 / 17.250 68.25 / 68.25 Dextrose 5% 100 ml @ 15 MG/HR 15 mls/hr IV .[id number] [facility] Rx#: [id number] Other: Other Intake Source Patient is NPO # Unmeasured Voids 1 Weight 96.6 kg 96.6 kg Weight Measurement Method Chair Scale Chair Scale Diagnostic Findings March 06, 2019 diagnostic cardiac catheterization performed by Dr. Lynne at [facility] revealed widely patent and normal coronary arteries. September 2020 Zio Monitor: Patient had a min HR of 46 bpm, max HR of 123 bpm, and avg HR of 67 bpm. Predominant underlying rhythm was Sinus Rhythm. Isolated SVEs were rare (<1.0%), SVE Couplets were rare (<1.0%), and no SVE Triplets were present. Isolated VEs were rare (<1.0%), and no VE Couplets or VE Triplets were present. Frequent symptoms including 43 trigger events and 10 diary entries predominantly correlated with sinus rhythm. On 1 occasion, symptoms correlated with sinus rhythm and an isolated supraventricular ectopic beat. No sustained dysrhythmias recorded. Status post November 22, [address] [facility], Dr. Robert Toussaint, radiofrequency ablation - focal atrial tachycardia anterior tricuspid annulus, cavotricuspid isthmus dependent atrial flutter with presumed eustachian ring shunt September 2022 Zio Monitor: Patient had a min HR of 50 bpm, max HR of 158 bpm, and avg HR of 71 bpm. Predominant underlying rhythm was Sinus Rhythm. 3 Supraventricular Tachycardia runs occurred, the run with the fastest interval lasting 5 beats with a max rate of 158 bpm, the longest lasting 9 beats with an avg rate of 107 bpm. Isolated SVEs were rare (<1.0%), SVE Couplets were rare (<1.0%), and SVE Triplets were rare (<1.0%). Isolated VEs were rare (<1.0%), and no VE Couplets or VE Triplets were present. Six patient triggered events and 6 diary events were submitted for review. The events predominantly correlated with sinus rhythm ranging from 64 beats per minute to 101 beats per minute. One event correlated sinus rhythm with premature atrial contractions.
--- NOTE | 2023-05-01 10:46 | Electrocardiogram Report ---
Test Reason : Blood Pressure : / mmHG Vent. Rate : 131 BPM Atrial Rate : 262 BPM P-R Int : 000 ms QRS Dur : 160 ms QT Int : 390 ms P-R-T Axes : 254 055 266 degrees QTc Int : 575 ms Atrial flutter with 2:1 A-V conduction Abnormal ECG When compared with ECG of 30-APR-2023 21:58, (unconfirmed) ST less depressed in Inferior leads ST less depressed in Anterolateral leads Inverted T waves have replaced nonspecific T wave abnormality in Inferior leads T wave inversion now evident in Lateral leads Confirmed by Jm Min ([id number] on 05/01/2023 10:46:00 AM Referred By: REFERRED SELF Confirmed By:Maynor Min
--- NOTE | 2023-05-01 10:47 | Electrocardiogram Report ---
Test Reason : Blood Pressure : / mmHG Vent. Rate : 082 BPM Atrial Rate : 271 BPM P-R Int : 000 ms QRS Dur : 090 ms QT Int : 424 ms P-R-T Axes : 126 067 040 degrees QTc Int : 495 ms Atrial flutter with variable A-V block Abnormal ECG When compared with ECG of 30-APR-2023 22:01, (unconfirmed) Vent. rate has decreased BY 49 BPM QRS duration has decreased T wave inversion no longer evident in Lateral leads Confirmed by Jm Min ([id number]) on 05/01/2023 10:47:01 AM Referred By: REFERRED SELF Confirmed By:Maynor Min
--- NOTE | 2023-05-01 10:53 | Electrocardiogram Report ---
Test Reason : Blood Pressure : / mmHG Vent. Rate : 133 BPM Atrial Rate : 266 BPM P-R Int : 000 ms QRS Dur : 082 ms QT Int : 322 ms P-R-T Axes : 248 071 035 degrees QTc Int : 479 ms Atrial flutter with 2:1 A-V conduction Nonspecific ST abnormality Abnormal ECG When compared with ECG of 25-SEP-2020 11:02, Atrial flutter has replaced Sinus rhythm QRS duration has decreased ST now depressed in Inferior leads ST now depressed in Anterolateral leads Confirmed by Jm Min ([id number]) on 05/01/2023 10:52:38 AM Referred By: REFERRED SELF Confirmed By:Maynor Min
--- NOTE | 2023-05-01 12:45 | Anesthesiology Consultation ---
Date of Service May 01, 2023 Assessment & Plan Chart Review Chart Review: Acceptable Risk for Surgery and Patient NOT seen in Pre Admission Testing Consults Requested none History Surgery Operation Date: 05/01/23 13:30 Proposed Procedures p Transesophageal Echo w/Anesthesia - Noah Stoll DO s Cardioversion - Noah Stoll DO Height/Weight Height: 5 ft 4 in Weight: 96.6 kg Allergies Allergy/AdvReac Type Severity Reaction Status Date / Time morphine Allergy Severe GI SYMPTOMS Verified 04/30/23 23:31 tobramycin Allergy Intermediate WORSENS Verified 04/30/23 23:31 EYE CONDITION AND SWELLING Penicillins Allergy Mild PURPLE Verified 04/30/23 23:31 SKIN AT HIGH DOSES Sulfa (Sulfonamide Allergy Mild PERIPHERAL Verified 04/30/23 23:31 Antibiotics) SWELLING nitrofurantoin Allergy Unknown CAN'T Verified 04/30/23 23:31 REMEMBER hydromorphone [From Dilaudid] AdvReac Mild Severe Verified 04/30/23 23:31 confusion vortioxetine AdvReac Unknown MOOD Verified 04/30/23 23:31 [From Brintellix] PROBLEMS, PAIN IN JOINTS Medications Home Medications Medication Instructions Recorded Confirmed Last Taken Natural Supp 1 tab PO BID 04/30/23 Unknown aspirin 81 mg tablet,delayed 81 mg PO DAILY 04/30/23 04/30/23 Unknown release betamethasone, augmented 0.05 % 1 applic topical BID PRN .flare ups 04/30/23 04/30/23 Unknown topical cream biotin 1 mg tablet 1 mg PO DAILY 04/30/23 04/30/23 Unknown cetirizine 10 mg tablet 10 mg PO DAILY 04/30/23 04/30/23 Unknown cholecalciferol (vitamin D3) 50 100 mcg PO DAILY 04/30/23 04/30/23 Unknown mcg (2,000 unit) capsule (Vitamin D3) clindamycin HCl 300 mg capsule 600 mg PO UD 04/30/23 04/30/23 Unknown diltiazem HCl 180 mg 180 mg PO DAILY 04/30/23 04/30/23 Unknown capsule,extended release 24 hr estradiol 1 mg tablet 1 mg PO QAM 04/30/23 04/30/23 Unknown fluoxetine 40 mg capsule 40 mg PO QAM 04/30/23 04/30/23 Unknown hydrochlorothiazide 12.5 mg capsule 12.5 mg PO .4DAYSWEEK 04/30/23 04/30/23 Unknown levothyroxine 175 mcg tablet 175 mcg PO DAILY 04/30/23 04/30/23 Unknown lisinopril 20 mg tablet 20 mg PO DAILY 04/30/23 04/30/23 Unknown multivitamin with minerals-folic 2 tab PO DAILY 04/30/23 04/30/23 Unknown acid 120 mcg chewable tablet (Adult Multivitamin Gummies) omeprazole 20 mg capsule,delayed 20 mg PO HS 04/30/23 04/30/23 Unknown release ursodiol 500 mg tablet 500 mg PO BID 04/30/23 04/30/23 Unknown Active Medications Generic Name Dose Route Start Last Admin Trade Name Freq PRN Reason Stop Dose Admin Acetaminophen 650 mg 05/01/23 01:23 05/01/23 02:47 Acetaminophen 325 Mg Tab PO 05/31/23 01:22 650 mg Q4H PRN Administration Pain or Fever Aspirin 81 mg 05/01/23 09:00 05/01/23 09:01 Aspirin 81 Mg Ectab PO 05/31/23 08:59 81 mg DAILY NADINE Administration Cetirizine HCl 10 mg 05/01/23 09:00 05/01/23 09:01 Cetirizine Hcl 10 Mg Tablet PO 05/31/23 08:59 10 mg DAILY NADINE Administration Estradiol 1 mg 05/01/23 09:00 05/01/23 09:01 Estradiol 1 Mg Tab PO 05/31/23 08:59 1 mg QAM NADINE Administration Fluoxetine HCl 40 mg 05/01/23 09:00 05/01/23 09:01 Fluoxetine Hcl 20 Mg Cap PO 05/31/23 08:59 40 mg QAM NADINE Administration Hydrochlorothiazide 12.5 mg 05/01/23 09:00 05/01/23 09:00 Hydrochlorothiazide 25 Mg Tab PO 05/31/23 08:59 12.5 mg [id number] NADINE Administration Diltiazem HCl 125 mg/ Dextrose 125 mls @ 15 mls/hr 04/30/23 23:15 05/01/23 10:01 IV 05/30/23 23:14 15 mg/hr .[id number] NADINE 15 mls/hr Administration Protocol 15 MG/HR Heparin Sodium/Dextrose 25,000 units in 500 mls @ 26 mls/hr 04/30/23 23:30 05/01/23 07:39 Heparin Sodium/Dextrose IV 05/30/23 23:29 1,300 units/hr .[id number] NADINE 26 mls/hr Titration Protocol 1,300 UNITS/HR Levothyroxine Sodium 175 mcg 05/01/23 06:30 05/01/23 05:25 Levothyroxine Sodium 175 Mcg Tablet PO 05/31/23 06:29 175 mcg DAILYBB NADINE Administration Lisinopril 20 mg 05/01/23 09:00 05/01/23 09:00 Lisinopril 20 Mg Tab PO 05/31/23 08:59 20 mg DAILY NADINE Administration Miscellaneous 1 each 05/01/23 08:00 05/01/23 09:00 Order Awaiting Action: Ursodiol 500 Mg Tablet N/A 05/31/23 07:59 Not Given QS NADINE Multivitamins/Folic Acid/Vitamin C 1 tab 05/01/23 09:00 05/01/23 09:00 Multivitamin Chewable Tab PO 05/31/23 08:59 1 tab DAILY NADINE Administration Vitamin D 4,000 units 05/01/23 09:00 05/01/23 09:00 Cholecalciferol 1,000 Units 25 Mcg Tab PO 05/31/23 08:59 4,000 units DAILY NADINE Administration Past Medical History Medical History Anxiety Autoimmune hepatitis (02/11/13) FOLLOWS W/ DR. 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 Hypertension Decreased since SVT has stopped Hypothyroidism Incomplete RBBB follows with [facility] Lumbar spondylosis Lumbar spondylosis Osteoarthritis severe Primary biliary cirrhosis FOLLOWS W/ DR. JOSEPH Psoriasis SVT (supraventricular tachycardia) DX 2019 years ago - Follows adán/ Raymundo Howell. S/p unsuccessful ablation 02/2019. November 22, 2020 - repeat ablation done at [facility] - did a double ablation and successful since then. No currently palpitations/chest pain/SOB Past Family History Family History Father Colonic polyp Uncle Colon cancer Past Surgical History Surgical History History of cardiac cath 02/2019 - [facility] - SVT/PAIN/DIAPHORETIC/FACIAL NUMBNESS - NO STENTS/ANGIOPLASTY History of colonoscopy Last one 06/10/21 History of D&C History of esophagogastroduodenoscopy (EGD) Last one 06/10/21 History of foot surgery [facility] History of left knee replacement History of liver biopsy History of tooth extraction 4 implants put in on 07/01/21 History of total abdominal hysterectomy and bilateral salpingo-oophorectomy History of tubal ligation Hx of prior ablation treatment 2018- unsuccesful and 2020- successful S/P cataract surgery January 04 and 2020 Status post total right knee replacement 07/20/2020: right TKA [facility]: SAB at L4-L5, 2 attempts + PNB. No issues per anesthesia progress note. Social History Smoking Status: Never smoker tobacco type: cigarettes Do You Dip or Chew Tobacco: No Hx Alcohol Use: Yes Alcohol type: wine alcohol intake frequency: 0-2 drinks per day Hx Substance Use: No substance use type: does not use Physical Exam Vital Signs Last Vital Signs Temp 36.9 C 05/01/23 11:23 Pulse 121 H 05/01/23 13:03 Resp 16 05/01/23 13:03 BP 132/68 05/01/23 13:03 Pulse Ox 96 05/01/23 13:03 O2 Del Method Room Air 05/01/23 13:03 Testing Laboratory Results 05/01/23 05:18 05/01/23 05:18 PT 9.9 Seconds (9.0-12.0) 04/30/23 22:03 INR 0.9 (0.9-1.1) 04/30/23 22:03 APTT 45.8 Seconds (21.0-31.0) H* 05/01/23 05:18 Electrocardiogram Date: 05/01/23 DICTATED BY:Jm Min MD Test Reason : Blood Pressure : / mmHG Vent. Rate : 082 BPM Atrial Rate : 271 BPM P-R Int : 000 ms QRS Dur : 090 ms QT Int : 424 ms P-R-T Axes : 126 067 040 degrees QTc Int : 495 ms Atrial flutter with variable A-V block Abnormal ECG When compared with ECG of 30-APR-2023 22:01, (unconfirmed) Vent. rate has decreased BY 49 BPM QRS duration has decreased T wave inversion no longer evident in Lateral leads Confirmed by mJ Min ([id number]) on 05/01/2023 10:47:01 AM
[2023-05-01] MEDS ORDERED: PROPOFOL IV EMULSION 10 MG/ML 20 ML VIAL IV ONE (12:47)
[2023-05-01] MEDS ORDERED: BENZOCAINE/TETRACAIN/BUTAM 50 APPLN/5 GM CAN EXT ONE (13:10)
--- NOTE | 2023-05-01 13:32 | Anesthesiology Progress Note ---
Date of Service May 01, 2023 Anesthesia Post Procedure Vital Signs Vital Signs: Temp Pulse Pulse Resp BP BP Pulse Ox 05/01/23 13:03 121 H 16 132/68 96 05/01/23 11:23 36.9 C 115 H 18 110/73 95 05/01/23 08:00 05/01/23 07:32 36.6 C 66 18 122/56 L 99 05/01/23 07:00 96 H 05/01/23 06:24 67 109/69 05/01/23 05:43 96 H 107/74 05/01/23 04:40 79 108/63 05/01/23 03:30 107 H 104/60 05/01/23 02:25 136 H 122/56 L 05/01/23 01:20 05/01/23 01:30 132 H 05/01/23 01:38 36.6 C 136 H 20 151/87 H 94 05/01/23 01:26 131 H 158/90 H 05/01/23 01:02 134 H 12 129/88 98 04/30/23 23:20 131 H 16 151/107 H 96 04/30/23 23:15 131 H 20 161/105 H 96 04/30/23 23:00 130 H 13 162/108 H 98 04/30/23 22:50 128 H 13 151/101 H 96 04/30/23 22:40 130 H 13 149/98 H 96 04/30/23 22:30 127 H 16 153/98 H 94 04/30/23 22:20 130 H 19 131/95 96 04/30/23 22:03 128 H 19 154/118 H 97 04/30/23 22:01 131 H 04/30/23 21:48 36.9 C 129 H 23 163/100 H 98 O2 Del Method 05/01/23 13:03 Room Air 05/01/23 11:23 Room Air 05/01/23 08:00 Room Air 05/01/23 07:32 Room Air 05/01/23 07:00 05/01/23 06:24 05/01/23 05:43 05/01/23 04:40 05/01/23 03:30 05/01/23 02:25 05/01/23 01:20 Room Air 05/01/23 01:30 05/01/23 01:38 Room Air 05/01/23 01:26 05/01/23 01:02 Room Air 04/30/23 23:20 04/30/23 23:15 04/30/23 23:00 04/30/23 22:50 04/30/23 22:40 04/30/23 22:30 Room Air 04/30/23 22:20 Room Air 04/30/23 22:03 Room Air 04/30/23 22:01 04/30/23 21:48 Pain Intensity Left Posterior Shoulder: Pain Intensity: 3 Transfer of Care Handoff Completed per policy Notes Mental Status: alert / awake / arousable and participated in evaluation Patient Amnestic to Procedure: Yes Nausea / Vomiting: adequately controlled Pain: adequately controlled Airway Patency, RR, SpO2: stable & adequate BP & HR: stable & adequate Hydration State: stable & adequate Anesthetic Complications: no major complications apparent and Pt Satisfied with anesthetic care
--- NOTE | 2023-05-01 13:53 | Cardioversion ---
Date of Service May 01, 2023 Electrical Cardioversion Rpt Electrical Cardioversion Report Indication: Paroxysmal atrial flutter with rapid ventricular response Complications: None Estimated blood loss: None Anesthesia: Conscious sedation provided by the anesthesia service with propofol. Please see separate report. Procedural summary: Patient brought to the cardiac catheterization holding area in a fasting state. Transesophageal echocardiogram completed prior to cardioversion. Please see separate report. Atrial flutter confirmed on monitor. Defibrillator pads placed in anterior and posterior position. When adequate sedation achieved, the defibrillator was synced to the QRS complex and a single 150 J shock was delivered. Patient successfully converted from atrial flutter to normal sinus rhythm. Patient tolerated procedure well. Conclusion: Successful external direct-current cardioversion from atrial fibrillation to normal sinus rhythm. Titrate oral diltiazem CD from 180 mg to 240 mg daily. Transition from IV heparin to Eliquis 5 mg twice daily. Recommend anticoagulation for minimum of 1 month post cardioversion.
[2023-05-01] MEDS ORDERED: dilTIAZem HCL 240 MG CAPCR PO SCH (14:00)
--- NOTE | 2023-05-01 15:36 | Discharge Summary ---
Date of Service May 01, 2023 Admission HPI Per Admitting Provider 67-year-old female with past medical significant for hypothyroidism, hyperlipidemia, allergic rhinitis, pulmonary nodules, hypertension, hepatic hemangioma, and incomplete right bundle branch block, history of sinus b radycardia, primary biliary sclerosis, GERD, migraines, psoriasis, presents with palpitations and found to have a flutter. Patient has history of SVT. Patient is s/p ablation in October 2020 at [facility] for SVT and focal atrial tachycardia. Prior to ablation she was taking flecainide and stopped after ablation. 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 Last couple of weeks she is feeling on and off palpitations. Her daughter is a doctor and advised her to come to the ER. Denies any chest pain. But lately she is feeling short of breath. Denies any dizziness. Having on and off blurred visions. No runny nose or sore throat or cough. No fevers. Appetite is good. No nausea. No abdominal pain. Bowel movements are irregular and today she had diarrhea 4 times. She has hemorrhoids and sometimes they bleed. Today she was micturating a lot. No hematuria. States she has some swelling of the feet yesterday but that resolved today. Past medical history as mentioned above Past surgical history. Bunion correction. Colonoscopy. EGD. EGD with biopsy. EGD with endoscopic ultrasound. Liver biopsy. Heart catheterization. Cataracts. Total hysterectomy. Heart ablation. Social history. quit smoking in 2000. 7 glasses of wine weekly. No drug use. Family history. Father has dementia. Mother in childbirth. Paternal grandfather had leukemia. Sister had stroke and pulmonary hypertension. Paternal aunt had breast cancer. Admission Exam Per Admitting Provider General- Not in distress Head- atraumatic Eyes- PERRL. ENT- oropharynx clear Neck- supple, no JVD. Lungs- clear to auscultation no wheezing or crackles. Heart- irregular rhythm; Tachycardia, no murmur, no gallop. Abdomen- normal bowel sounds, soft, nontender, no distension. Extremities- no pretibial edema, no erythea seen Neuro- alert, oriented x 3; PERRL,; no facial palsy; no dysarthria; Non focal. Skin- warm & dry Principal Diagnosis Paroxysmal atrial flutter with rapid ventricular response Discharge Exam General- WD/WN F in NAD Head- atraumatic Eyes- PERRL. ENT- oropharynx clear Neck- supple, no JVD. Lungs- clear to auscultation no wheezing or crackles. Heart- rrr, no murmur, no gallop. Abdomen- normal bowel sounds, soft, nontender, no distension. Extremities- no pretibial edema, no erythema seen Neuro- alert, oriented x 3; PERRL,; no facial palsy; no dysarthria;answers appropriately, moves extremities Skin- warm & dry Discharge Data Allergies Allergy/AdvReac Type Severity Reaction Status Date / Time morphine Allergy Severe GI SYMPTOMS Verified 04/30/23 23:31 tobramycin Allergy Intermediate WORSENS Verified 04/30/23 23:31 EYE CONDITION AND SWELLING Penicillins Allergy Mild PURPLE Verified 04/30/23 23:31 SKIN AT HIGH DOSES Sulfa (Sulfonamide Allergy Mild PERIPHERAL Verified 04/30/23 23:31 Antibiotics) SWELLING nitrofurantoin Allergy Unknown CAN'T Verified 04/30/23 23:31 REMEMBER hydromorphone [From Dilaudid] AdvReac Mild Severe Verified 04/30/23 23:31 confusion vortioxetine AdvReac Unknown MOOD Verified 04/30/23 23:31 [From Brintellix] PROBLEMS, PAIN IN JOINTS Consultations 04/30/23 23:09 ED Decision to Admit Stat 05/01/23 08:00 Consult Cardiology Routine 05/01/23 11:27 Consult Anesthesiology Routine Procedures Performed Operation Date: 05/01/23 13:30 Actual Procedures p Echo Transesophageal - DO zahra Ford Cardioversion - DO zahra Ford Echo Color Flow - DO zahra Ford Doppler Echo Limited/Follow Up - Noah Stoll DO Hospital Course (1) Atrial flutter with rapid ventricular response: 67-year-old female with past medical significant for hypothyroidism, hyperlipidemia, allergic rhinitis, pulmonary nodules, hypertension, hepatic hemangioma, and incomplete right bundle branch block, history of sinus bradycardia, primary biliary sclerosis, GERD, migraines, psoriasis, presents with palpitations and found to have a flutter. A flutter with rapid ventricular response On Cardizem drip on admission IV heparin History of hemorrhoid bleed, we will monitor We will follow serial cardiac enzymes and echo Telemetry floor Consulted cardiology for further recommendations Pt underwent cardioversion w/ cardiology (and FLORENTIN). Pt is now in NSR and feeling well. Diltiazem increased to 240 mg and pt will be also discharged on eliquis. History of SVTs S/p ablation Could not tolerate Lopressor which caused fatigue and depression On p.o. Cardizem at home, dose now increased as above Hypothyroidism On Synthyroid TSH is 2.7 Hypertension On diltiazem and lisinopril cont. to monitor GERD On omeprazole History of primary biliary sclerosis On ursodiol Follows with GI History of granular cell tumor of the esophagus S/p removal and no recurrence as per patient. Total Time Total Time Spent Total Time Spent (In Minutes): 40 Discharge Plan Discharge Items Patient Disposition: Home - Self-Care Reason For Visit: NEW AFLUTTER Discharge Diagnosis: Paroxysmal atrial flutter with rapid ventricular response Activity: Per Instructions section Non-emergency contact: Primary Care Provider and Supervisor Border Department Call non-emergency contact if: you have any medication questions and your symptoms worsen Follow-up/Referrals: Raymundo Howell [Physician Business Development Recruiter] - (The Cardiology office will contact you for a follow up appointment.) Marci Rock PA-C [Primary Care Provider] - (Date & Time 05/07/2023 11:00 AM Provider Marci Rock PA-C Department [facility] ) Diet: Heart Healthy Addtl Attending Provider Instructions: Follow up with primary care physician and cardiology. The appointment with primary care provider was scheduled for you for May 07. You will be contacted about the appointment with cardiology. Your diltiazem CD was increased to 240 mg daily. You should also take eliquis 5 mg twice a day. You should take eliquis for at least 1 month post cardioversion. Monitor your blood pressure and heart rate at home and write down your numbers. Discuss further with your outpatient providers to see if any adjustments need to be done with your medications. Pending Studies at Discharge: No Stand-Alone Forms: My [employer], Smoking Cessation Medications and DC Order Prescriptions: New Eliquis 5 mg tablet 5 mg PO BID Qty: 60 0RF diltiazem HCl 240 mg Capsule,Extended Release 24hr 240 mg PO QAM Qty: 30 0RF Continued fluoxetine 40 mg capsule 40 mg PO QAM levothyroxine 175 mcg tablet 175 mcg PO DAILY clindamycin HCl 300 mg Capsule 600 mg PO UD Rx Instructions: Take 1 hour before dental procedure. cetirizine 10 mg tablet 10 mg PO DAILY lisinopril 20 mg tablet 20 mg PO DAILY betamethasone, augmented 0.05 % cream 1 applic TOPICAL BID PRN (Reason: .flare ups) aspirin [Aspir-Low] 81 mg Tablet,Delayed Release (Dr/Ec) 81 mg PO DAILY estradiol 1 mg tablet 1 mg PO QAM hydrochlorothiazide 12.5 mg capsule 12.5 mg PO .4DAYSWEEK Rx Instructions: Take sun, tues, thur, sat omeprazole 20 mg capsule,delayed release(DR/EC) 20 mg PO HS ursodiol 500 mg tablet 500 mg PO BID biotin 1 mg Tablet 1 mg PO DAILY cholecalciferol (vitamin D3) [Vitamin D3] 50 mcg (2,000 unit) Capsule 100 mcg PO DAILY multivit with min-folic acid [Adult Multivitamin Gummies] 120 mcg Tablet,Chewable 2 tab PO DAILY Natural Supp 1 tab PO BID Rx Instructions: has turmeric, matthew, bioperine Discontinued diltiazem HCl 180 mg capsule,extended release 24hr 180 mg PO DAILY Discharge Orders: Discharge Order (Routine); Ordered 05/01/23 Ordered By: Aden Traylor Admission Data Admit Date/Time: 05/01/23 00:11 Attending Provider: Aden Traylor Admit Provider: Hollis Dahl Primary Care Provider: Marci Rock Other Providers: Hollis Dahl ; Noah Stoll ; Trinh Garcia ; Janet Peña ; Jeannine Vasquez ; Jolie Julian ; Russel Akers ; Shaan De Jesus ; Evangelista Sal[place]anca ; Shaheed Egan ; Zenia Egan ; Maco Singh ; Letha Hayward ; Juan Paiz Gary R. ; Pepito Connolly ; Juarez Fajardo ; Kimmie Solorzano ; Raymundo Lora ; Paige Fonseca ; Zoraida Lora ; Jim Plunkett ; Karla Bobby ; Kojo Silva ; Elisha Nava ; Jodie Hutchinson ; Vinayak Myers ; Ania Melgar ; Jonna Agrawal ; Anabell Worthy ; Kaitlynn Mancilla A ; Baldemar Mancilla V ; Jamel Florse ; Janet De Paz ; Harish Moss ; Hiral Castro ; Baldemar Dubon ; Shahid Solorzano ; Tab Almeida ; Samantha Arita ; Manasa Corona ; Baldemar Caldwell ; Doni Mari ; Laury Su ; Jerome Mancilla ; Luz Maria Mccoy ; Claribel Rothman ; Christ Mathias ; Dudley Fajardo ; Dixie Mckeon ; Sujit Olson ; Jonathan Jurado ; Jm Golden ; Russel Boles Jr ; Chrissie Perez ; Angelic Vivas A. ; Shalini Pabon. ; Vinayak Hare. ; Aleksandra Deal. ; Shaheed Amin. ; Dayron Winters I. ; Nicole Graham S. ; Angelic Pope A. ; Jl Monk ; Federico Horn ; Andre Majano ; Lazarus Saeed V. ; Dharmesh Gaming ; Usha Walker ; Rakesh Read ; Sunita Scott ; Fannie Ospina ; Chandrika Sears
--- NOTE | 2023-05-01 17:22 | Electrocardiogram Report ---
Test Reason : Blood Pressure : / mmHG Vent. Rate : 066 BPM Atrial Rate : 066 BPM P-R Int : 176 ms QRS Dur : 098 ms QT Int : 418 ms P-R-T Axes : 052 057 049 degrees QTc Int : 438 ms Normal sinus rhythm Normal ECG When compared with ECG of 01-MAY-2023 05:11, Sinus rhythm has replaced Atrial flutter ST no longer depressed in Inferior leads QT has shortened Confirmed by Jm Min ([id number]) on 05/01/2023 5:22:03 PM Referred By: REFERRED SELF Confirmed By:Maynor Min
[2023-05-01] MEDS ORDERED: APIXABAN 5 MG TABLET PO SCH (19:30)
[2023-05-01] MEDS ORDERED: PANTOprazole 40 MG TAB PO SCH (21:00)
== END 2023-05-01 18:30 | disposition home or self-care (01) ==
LOC: ED 21:43 → INTOOBSV 05-01 00:11 → 4W 05-01 00:11